=== PATIENT | female | born 1935 | race Caucasian/White ===

== ENCOUNTER 2021-09-25 09:17 | Emergency (ER) | payer MEDICARE, BC, SELFPAY ==
[2021-09-25 09:31] VITALS: BP 168/101; PULSE 69; RESP 20; TEMP 36.6; O2SAT 98; BMI 23.2
--- NOTE | 2021-09-25 09:46 | CRLHL7_ITS ---
For Patients: As a result of the Century Cures Act, medical imaging exams and procedure reports are released immediately into your electronic medical record. You may view this report before your referring provider. If you have questions, please contact your health care provider. INDICATION: Chest pain. TECHNIQUE: PA and lateral chest radiographs. COMPARISON: None available. FINDINGS: Mild linear and bandlike opacities scattered throughout the lungs bilaterally, with a peripheral and basilar predominance. No pneumothorax or pleural effusion. Borderline cardiomegaly. Left chest wall dual chamber cardiac pacer. Diffuse demineralization. IMPRESSION: Mild widespread peripheral/basilar predominant opacities may reflect atelectasis/scarring, pneumonitis, and/or atypical infection. Dictated by Dani Duran MD @ 09/25/2021 10:22:27 AM Dictated by: Dani Duran MD @ 09/25/2021 10:23:15 (Electronically Signed)
--- NOTE | 2021-09-25 09:47 | ED_ITS ---
HPI - General Adult General Time Seen by Provider: 09:47 Date Seen: 09/25/21 Chief complaint: Shortness of Breath/Dyspnea Stated complaint: Fell, hit back trouble breathing Time Seen by Provider: 09/25/21 09:21 Source: patient Mode of arrival: ambulatory Limitations: no limitations History of Present Illness HPI narrative: Patient is a 85 year white female who was stepping up on a curb and fell backward she landed on her back she has really no upper back pain she landed between her shoulder blades she does complain of some anterior chest tightness when she takes a deep breath she is on. She is on Coumadin, for AFib. She also has a pacemaker. She has had no anterior chest pain other than when she takes a deep breath. She has had no recent chest pain or illness. She simply lost her balance today she did not have any syncopal episode or loss of consciousness. Did not hit her head or any other body part. She has been ambulatory. She was trying to miss a water puddle when she was walking. She has not had an INR done for a couple of weeks. Past medical history significant for pacemaker, AFib, anticoagulation with Coumadin. Related Data Allergies Allergy/AdvReac Type Severity Reaction Status Date / Time No Known Drug Allergies Allergy Verified 09/25/21 10:59 [facility] Social History Smoking Status: Never smoker Second hand tobacco smoke exposure: No How often do you have a drink containing alcohol: monthly or less How many standard drinks containing alcohol do you have on a typical day: 1 or 2 How often do you have six or more drinks on one occasion: Never AUDIT-C Alcohol total score: 1 Non-prescribed substance use: denies use service: No Exam Narrative: Exam Narrative: Objective: In general the patient is no apparent distress, noncyanotic, with normal respiratory rate normal speech pattern Vital signs unremarkable other than slightly elevated blood pressure HEENT is unremarkable no facial asymmetry, no scleral icterus Neck is supple Chest and back show no tenderness to the interscapular area no tenderness to her back at all and no bruising. No anterior chest wall bruising. No real tenderness to palpation in the anterior chest. Heart is irregular regular with 2/6 systolic ejection murmur. Abdomen is benign soft Pelvis stable Upper lower extremities move without difficulty and no tenderness to palpation. Skin exam is unremarkable, warm and dry Const: Vital Signs, click to edit/add: Vital Signs - 24 hr 09/25/21 09:31 09/25/21 10:15 Temperature 98 F Pulse Rate [Pulse Oximeter] 69 70 Respiratory Rate 20 16 Blood Pressure [Ri t Upper Arm] 168/101 H 155/97 H Pulse Oximetry 98 98 Course Course Hospital Course: Patient is not had an INR done in about 3 weeks she did adjust her dose, will get an INR, heme 4, EKG, chest x-ray given the patient's complaint of some anterior chest discomfort with breathing secondary to her fall Vital Signs Vital signs: Initial Vital Signs Temperature 98 F 09/25/21 09:31 Temperature Source Temporal Artery Scan 09/25/21 09:31 Pulse Rate 69 09/25/21 09:31 Pulse Rhythm 09/25/21 09:31 Respiratory Rate 20 09/25/21 09:31 Blood Pressure 168/101 H 09/25/21 09:31 Blood Pressure Mean 123 09/25/21 09:31 Pulse Oximetry 98 09/25/21 09:31 Oxygen Delivery Method 09/25/21 09:31 Vital Signs Temperature 98 F 09/25/21 09:31 Pulse Rate 69 09/25/21 09:31 Respiratory Rate 20 09/25/21 09:31 Blood Pressure 168/101 H 09/25/21 09:31 Pulse Oximetry 98 09/25/21 09:31 Temperature 98 F 09/25/21 09:31 Pulse Rate 70 09/25/21 10:15 Respiratory Rate 16 09/25/21 10:15 Blood Pressure 155/97 H 09/25/21 10:15 Pulse Oximetry 98 09/25/21 10:15 Medical Decision Making [facility] Narrative Medical decision making narrative: Patient fell backwards hitting between her shoulder blades she has some anterior chest discomfort when she deep breathes. She has no palpable back findings, no palpable anterior chest findings. I suspect she has an intercostal or just chest wall strain from her fall. She has got good lung sounds bilaterally but will check an x-ray, and an EKG for completeness. She declines any pain medicine at this time. Addendum: The patient's laboratory studies look reassuring, her INR is 2.2, her chest x-ray shows chronic interstitial changes she does report a history of sarcoidosis in the past. She feels better. There is no abnormality by my read on her EKG it appears to be a paced rhythm some PACs a pulmonary disease pattern consistent with sarcoidosis no other acute ST T wave changes. I suspect she has chest wall pain from her fall, and would recommend Tylenol Advil as needed, light activity, update regular doctor within the next couple of days for reassessment as needed. Return to the ED as needed. Lab Data Labs: Lab Results 09/25/21 09/25/21 Range/Units 09:54 09:55 WBC 5.22 (4.50-11.00) K/uL RBC 4.14 (4.00-5.20) m/uL Hgb 13.4 (12.0-16.0) gm/dL Hct 39.7 (33.0-51.0) % MCV 96 (80-100) fL MCH 32 (26-34) pg MCHC 34 (32-36) gm/dL RDW Coeff of Juanita 13.2 (11.5-15.5) % Plt Count 177 (140-440) K/uL Neut % (Auto) 64.3 (42.0-72.0) % Lymph % (Auto) 16.3 L (20-44) % Bosque % (Auto) 10.7 (0.0-11.0) % Eos % (Auto) 7.1 H (0.0-7.0) % Baso % (Auto) 1.0 (0.0-3.0) % Neut # (Auto) 3.36 (1.7-7.0) K/uL Lymph # (Auto) 0.90 (0.90-2.90) K/uL Bosque # (Auto) 0.60 (0.00-0.90) K/UL Eos # (Auto) 0.40 (0.00-0.50) K/uL Baso # (Auto) 0.05 (0.00-0.30) K/uL Abs Immat Gran (auto) 0.03 (0.00-0.30) K/uL INR 2.29 H (0.91-1.10) Discharge Plan Discharge Clinical Impression: Chest wall pain, Fall Patient Disposition: Home w/ Parent or Adult Condition: Stable Additional Instructions: Tylenol or Advil as needed, light activity, ice to the areas of tenderness as needed. Observation, update primary care in the next couple of days, return to ED sooner problems concerns difficulty Activity Level: Light activity Discharge Diet: Regular Follow Up/Referrals: Filemon Reagan MD [Primary Care Provider] - Stand Alone Forms: [facility] Info Instructions
[2021-09-25 10:00] LABS: Basophils Absolute Auto 0.05 K/uL (0.00-0.30); Eosinophils Percent Auto 7.1 % (0.0-7.0); Hematocrit 39.7 % (33.0-51.0); Hemoglobin* 13.4 gm/dL (12.0-16.0); Immature Granulocytes Abs Auto 0.03 K/uL (0.00-0.30); Lymphocytes Percent Auto 16.3 % (20-44); Mean Corpuscular HGB Conc 34 gm/dL (32-36); Mean Corpuscular Hemoglobin 32 pg (26-34); Mean Corpuscular Volume 96 fL (80-100); Monocytes Percent Auto 10.7 % (0.0-11.0); Neutrophils Absolute Auto 3.36 K/uL (1.7-7.0); Neutrophils Percent Auto 64.3 % (42.0-72.0); Platelet Count* 177 K/uL (140-440); RDW Coefficient of Variation % 13.2 % (11.5-15.5); Red Blood Count 4.14 m/uL (4.00-5.20); White Blood Count* 5.22 K/uL (4.50-11.00)
[2021-09-25 10:15] VITALS: BP 155/97; PULSE 70; RESP 16; O2SAT 98
[2021-09-25 10:28] LABS: INR 2.29 (0.91-1.10); Prothrombin Time 25.6 Seconds
[2021-09-25] MEDS: ACETAMINOPHEN 500 MG TABLET 1000 MG PO (10:33)
[2021-09-25 10:59] LABS: Slide Review Reflex No
[2021-09-25 11:00] VITALS: BP 161/98; PULSE 70; RESP 16; O2SAT 97
== END 2021-09-25 11:30 ==
LOC: ED 11:12
PROVIDERS: Emergency Provider Family Medicine; PCP Internal Medicine
DX: R07.1 Chest pain on breathing (principal)
CPT/HCPCS: 36415; 71046; 85025; 85610; 93005; 99284; A9270

== ENCOUNTER 2021-10-25 10:27 | Outpatient (CLI) | payer MEDICARE, BC, SELFPAY ==
--- NOTE | 2021-10-25 11:00 | CRLHL7_ITS ---
For Patients: As a result of the Century Cures Act, medical imaging exams and procedure reports are released immediately into your electronic medical record. You may view this report before your referring provider. If you have questions, please contact your health care provider. Indication: PAIN, STRICTURE FEELING ACROSS CHEST Technique: Noncontrast CT thoracic spine Please note that all CT scans at this facility use dose modulation, iterative reconstruction, and/or weight-based dosing when appropriate to reduce radiation dose to as low as reasonably achievable. Comparison: Chest x-ray 05/30/2016, 09/25/2021. CT abdomen pelvis 12/1913. Findings: There is a compression deformity involving the inferior endplate of T6 with associated sclerosis. This is new since 2016. Rightward curvature of the lower thoracic spine noted. Severe degenerative disc disease on the left at L1-2. Cardiomegaly. Incidental retroesophageal course of the right subclavian artery. Areas of scarring within the visualized lung parenchyma. Impression: Compression deformity of T6. Please note that all CT scans at this facility use dose modulation, iterative reconstruction, and/or weight-based dosing when appropriate to reduce radiation dose to as low as reasonably achievable. Dictated by Alex Jean Baptiste MD @ 10/25/2021 12:29:03 PM (Electronically Signed)
== END 2021-10-25 10:28 | disposition home or self-care (01) ==
PROVIDERS: PCP Internal Medicine; Visit Provider Internal Medicine
DX: R07.89 Other chest pain (principal); M51.36 Other intervertebral disc degeneration, lumbar region
CPT/HCPCS: 72128

== ENCOUNTER 2022-03-03 12:19 | Emergency (ER) | payer MEDICARE, BC, SELFPAY ==
[2022-03-03 12:29] VITALS: BP 157/107; PULSE 77; TEMP 36.1; O2SAT 96; BMI 22.2
--- NOTE | 2022-03-03 12:38 | ED_ITS ---
History of Present Illness General Chief Complaint: Epistaxis/Nosebleed Stated Complaint: Niosebleed Time Seen by Provider: 03/03/22 12:28 History of Present Illness HPI Narrative: This 86-year-old female comes in with epistaxis. She is on Coumadin for atrial fibrillation. She states that her last INR a couple weeks ago was around 2.4. She states that a nosebleed began about 7:00 a.m. this morning and has persisted until just prior to arrival here. Upon arrival she is not actively bleeding but does have some bright red blood in the anterior inferior portion of her left nostril. There is no evidence of posterior bleed or blood in her oropharynx. Related Data Home Medications Medication Instructions Recorded Confirmed calcium carbonate 500 mg-vitamin 1 tab PO BID 10/18/21 10/18/21 D3 5 mcg (200 unit) tablet hydrochlorothiazide 25 mg tablet 25 mg PO QDAY 10/18/21 10/18/21 loratadine 10 mg tablet See Rx Instructions PO QDAY 10/18/21 10/18/21 sotalol 120 mg tablet 120 mg PO BID 10/18/21 10/18/21 zinc sulfate 66 mg tablet 66 mg PO QDAY 10/18/21 10/18/21 Previous Rx's Medication Instructions Recorded warfarin 5 mg tablet See Rx Instructions PO QMWF #240 11/20/21 tabs magnesium oxide 400 mg PO BID Atrial Fibrillation 12/12/21 #90 tabs warfarin 5 mg tablet 10 mg PO QTUTHSASU #180 tabs 02/20/22 Allergies Allergy/AdvReac Type Severity Reaction Status Date / Time No Known Drug Allergies Allergy Verified 10/18/21 13:00 Review of Systems Status of ROS: Reports: 10 or more systems reviewed and unremarkable except as noted in History and below Narrative: Constitutional: No fevers, no weight gain or loss. Eyes: No discharge. No vision changes. HENT: No congestion, no sore throat, no ear pain. Nose bleed as described above. Cardiovascular: No chest pain, no palpitations. Respiratory: No shortness of breath, no wheezes, no cough. Gastrointestinal: No abdominal pain, no vomiting, no diarrhea. Genitourinary: No dysuria, no hematuria. Musculoskeletal: Normal range of motion. Skin: No rashes, no pruritis. Neurological: No dizziness, weakness, sensory change, speech change. Endo/Heme/Allergies: No bruising or bleeding. No polydipsia. Pysch: no suicidality, no anxiety, no insomnia. All other systems reviewed and are negative. [facility] Medical History (Updated 03/03/22 @ 14:33 by Dennis Chan MD) Blunt injury of chest History of basal cell carcinoma (02/24/09) History of benign breast biopsy (02/24/09) History of sarcoidosis (02/24/09) Surgical History (Updated 10/11/21 @ 13:37 by Parul Fletcher) History of section (02/24/09) Status post cataract extraction (01/18/11) Social History Smoking Status: Never smoker Second hand tobacco smoke exposure: No How often do you have a drink containing alcohol: monthly or less How many standard drinks containing alcohol do you have on a typical day: 1 or 2 How often do you have six or more drinks on one occasion: Never AUDIT-C Alcohol total score: 1 Non-prescribed substance use: denies use service: No Exam Narrative: Exam Narrative: Constitutional: Well-developed, well-nourished, no acute distress. HEENT: Normocephalic, atraumatic. Right nostril appears normal. Left nostril has some bright red blood in the inferior anterior portion of the nostril. There is no active bleeding currently. There is no sign of posterior bleed. Neck: Normal range of motion. Nontender. Supple. Heart: Intact distal pulses. Lungs: No chest discomfort. No wheezes, rhonchi, or rales. Abdomen: Nontender. Back: Normal range of motion. Extremities: Normal range of motion. No injury. Skin: Intact. No rash. Warm. No erythema or pallor. Neurologic: No altered sensation. No weakness. Alert and oriented. Psychiatric: No suicidality. No anxiety or depression. No insomnia. Nursing notes and vitals signs are reviewed. Const: Vital Signs, click to edit/add: Vital Signs - 24 hr 03/03/22 12:29 03/03/22 13:02 03/03/22 14:00 Temperature 96.9 F L Pulse Rate [Left] 77 Blood Pressure [Le ft Upper Arm] 157/107 H 134/86 119/78 Pulse Oximetry 96 Oxygen Delivery Me thod Room Air Course Vital Signs Vital signs: Initial Vital Signs Temperature 96.9 F L 03/03/22 12:29 Temperature Source Temporal Artery Scan 03/03/22 12:29 Pulse Rate 77 03/03/22 12:29 Blood Pressure 157/107 H 03/03/22 12:29 Blood Pressure Mean 123 03/03/22 12:29 Pulse Oximetry 96 03/03/22 12:29 Oxygen Delivery Method 03/03/22 12:29 Vital Signs Temperature 96.9 F L 03/03/22 12:29 Pulse Rate 77 03/03/22 12:29 Blood Pressure 157/107 H 03/03/22 12:29 Pulse Oximetry 96 03/03/22 12:29 Oxygen Delivery Method 03/03/22 12:29 Temperature 96.9 F L 03/03/22 12:29 Pulse Rate 77 03/03/22 12:29 Blood Pressure 119/78 03/03/22 14:00 Pulse Oximetry 96 03/03/22 12:29 Oxygen Delivery Method 03/03/22 12:29 MDM - Epistaxis MDM Narrative Medical decision making narrative: This patient received Afrin in her left nostril. A nasal clamp is provided in case of rebleed. Her INR returns at 2.24. She has not had any recurrent bleeding during her stay here. She states that she is using Vaseline at night in her nostrils to prevent them from drying. Lab Data Labs: Lab Results 03/03/22 Range/Units 13:12 INR 2.24 H (0.91-1.10) Discharge Plan Discharge Clinical Impression: Epistaxis Patient Disposition: Home, Self-Care Condition: Improved Additional Instructions: Continue current plans. Use nasal clamp and Afrin if rebleeding occurs. Follow up with MD or return if worsening. Prescriptions: No Action calcium carbonate-vitamin D3 500 mg-5 mcg (200 unit) tablet 1 tab PO BID loratadine 10 mg tablet See Rx Instructions PO QDAY Rx Instructions: 10 mg (PRN) PO every day; sotalol 120 mg tablet 120 mg PO BID zinc sulfate 66 mg tablet 66 mg PO QDAY hydrochlorothiazide 25 mg tablet 25 mg PO QDAY warfarin 5 mg tablet See Rx Instructions PO QMWF Qty: 240 0RF Protocol: Dose Management Condition: Saturday Dose/Route: 10 % Instruction: 2 x 5 % tablets Condition: Saturday Dose/Route: 12.5 % Instruction: 2.5 x 5 % tablets Condition: Saturday Dose/Route: 10 % Instruction: 2 x 5 % tablets Condition: Saturday Dose/Route: 12.5 % Instruction: 2.5 x 5 % tablets Condition: Dose/Route: 10 % Instruction: 2 x 5 % tablets Condition: Saturday Dose/Route: 12.5 % Instruction: 2.5 x 5 % tablets Condition: Saturday Dose/Route: 10 % Instruction: 2 x 5 % tablets Protocol Text: Adjustment Start Date: Saturday02/20/22 INR Value: 2.4 INR Date: 02/20/22 Recheck Date: 03/20/22 Rx Instructions: 12.5 mg orally every saturday, saturday, and saturday; 10 mg the rest of the week. magnesium oxide 400 mg magnesium tablet 400 mg PO BID Qty: 90 2RF warfarin 5 mg tablet 10 mg PO QTUTHSASU Qty: 180 0RF Protocol: Dose Management Condition: Saturday Dose/Route: 10 % Instruction: 2 x 5 % tablets Condition: Saturday Dose/Route: 12.5 % Instruction: 2.5 x 5 % tablets Condition: Saturday Dose/Route: 10 % Instruction: 2 x 5 % tablets Condition: Saturday Dose/Route: 12.5 % Instruction: 2.5 x 5 % tablets Condition: Dose/Route: 10 % Instruction: 2 x 5 % tablets Condition: Saturday Dose/Route: 12.5 % Instruction: 2.5 x 5 % tablets Condition: Saturday Dose/Route: 10 % Instruction: 2 x 5 % tablets Protocol Text: Adjustment Start Date: Saturday02/20/22 INR Value: 2.4 INR Date: 02/20/22 Recheck Date: 03/20/22 Follow Up/Referrals: Filemon Reagan MD [Primary Care Provider] - Stand Alone Forms: [employer] Info Instructions
[2022-03-03] MEDS: OXYMETAZOLINE 0.05% NASAL SPRAY 1 SPRAY NOSTRIL-L (12:45)
[2022-03-03 13:02] VITALS: BP 134/86
[2022-03-03 13:33] LABS: INR 2.24 (0.91-1.10); Prothrombin Time 25.9 Seconds
[2022-03-03 14:00] VITALS: BP 119/78
== END 2022-03-03 14:38 | disposition home or self-care (01) ==
PROVIDERS: Emergency Provider Emergency Medicine Emergency Medical Services; PCP Internal Medicine
DX: R04.0 Epistaxis (principal)
CPT/HCPCS: 36415; 85610; 99283; 99284; A9270

== ENCOUNTER 2022-05-16 15:56 | Emergency (ER) | payer MEDICARE, BC, SELFPAY ==
[2022-05-16 15:59] VITALS: BP 194/115; PULSE 90; RESP 21; TEMP 36.4; O2SAT 94; BMI 21.6
--- NOTE | 2022-05-16 16:16 | CRLHL7_ITS ---
For Patients: As a result of the Century Cures Act, medical imaging exams and procedure reports are released immediately into your electronic medical record. You may view this report before your referring provider. If you have questions, please contact your health care provider. Indication: Dyspnea Comparison: Two-view chest September 25, 2021 Technique: PA and lateral views of the chest Findings: There is hyperinflation and extensive chronic interstitial change with basilar atelectasis and parenchymal scar. There is blunting of the costophrenic angles likely representing small pleural effusions. Stable cardiac silhouette with dual-chamber pacer. The bony thorax is grossly intact. Impression: Hyperinflation and chronic interstitial changes with increased interstitial markings likely representing pulmonary edema with small bibasilar pleural effusions with adjacent compressive atelectasis versus infiltrates. Dictated by Chinedu Carr MD @ 05/16/2022 4:47:37 PM (Electronically Signed)
--- NOTE | 2022-05-16 16:17 | ED.GENADULT ---
HPI - General Adult General Time Seen by Provider: 16:17 Date Seen: 05/16/22 Chief complaint: High Blood Pressure Stated complaint: High BP Time Seen by Provider: 05/16/22 16:06 Source: patient and family Mode of arrival: ambulatory Limitations: no limitations History of Present Illness HPI narrative: 86-year-old female who comes in today for high blood pressure. Shield her blood pressure was high yesterday and today. Call the clinic was told to should be seen in the emergency department. She takes sotalol and hydrochlorothiazide, review of chart shows history of atrial fibrillation and patient is anticoagulated, also history of heart failure. Patient has no chest pain, nausea, vomiting, abdominal pain, diarrhea, or lower extremity swelling with this. She does note some shortness of breath which is been going on for couple of days. Related Data Home Medications Medication Instructions Recorded Confirmed calcium carbonate 500 mg-vitamin 1 tab PO BID 10/18/21 10/18/21 D3 5 mcg (200 unit) tablet hydrochlorothiazide 25 mg tablet 25 mg PO QDAY 10/18/21 10/18/21 loratadine 10 mg tablet See Rx Instructions PO QDAY 10/18/21 10/18/21 sotalol 120 mg tablet 120 mg PO BID 10/18/21 10/18/21 zinc sulfate 66 mg tablet 66 mg PO QDAY 10/18/21 10/18/21 Previous Rx's Medication Instructions Recorded magnesium oxide 400 mg PO BID Atrial Fibrillation 12/12/21 #90 tabs warfarin 5 mg tablet See Rx Instructions PO QMWF #240 05/10/22 tabs Allergies Allergy/AdvReac Type Severity Reaction Status Date / Time No Known Drug Allergies Allergy Verified 05/16/22 16:04 Review of Systems Status of ROS: Reports: 10 or more systems reviewed and unremarkable except as noted in History and below [facility] Medical History (Updated 05/16/22 @ 17:32 by Johnie Laguna MD) Blunt injury of chest History of basal cell carcinoma (02/24/09) History of benign breast biopsy (02/24/09) History of sarcoidosis (02/24/09) Surgical History (Updated 10/11/21 @ 13:37 by Parul Fletcher) History of section (02/24/09) Status post cataract extraction (01/18/11) Social History Smoking Status: Never smoker Second hand tobacco smoke exposure: No How often do you have a drink containing alcohol: monthly or less How many standard drinks containing alcohol do you have on a typical day: 1 or 2 How often do you have six or more drinks on one occasion: Never AUDIT-C Alcohol total score: 1 Non-prescribed substance use: denies use service: No Exam Narrative: Exam Narrative: General: Well-developed and well-nourished, no acute distress Head: Atraumatic and normocephalic Eyes: Pupils are equal reactive, extraocular motions intact, conjunctiva clear ENT: External nose and ears are normal, posterior pharynx without erythema or exudate Neck: No midline cervical tenderness, full spontaneous range of motion the neck, trachea midline, no adenopathy Heart: Regular rate and rhythm no murmurs or thrills Lungs: Mild increased work of breathing with bilateral crackles worse on the left Abdomen: Soft, nontender, nondistended with active bowel sounds Musculoskeletal: No tenderness, deformity, or edema Neurologic: Awake, alert, and oriented x3, no gross focal neurologic deficits, cranial nerves intact as tested Psych: Mood and affect are appropriate Skin: No rashes Const: Vital Signs, click to edit/add: Vital Signs - 24 hr 05/16/22 15:59 05/16/22 17:38 Temperature 97.5 F L Pulse Rate [Pulse Oximeter] 90 Respiratory Rate 21 20 Blood Pressure [Ri ght Upper Arm] 194/115 H 159/100 H Pulse Oximetry 94 98 Oxygen Delivery Me thod Room Air Room Air Course Course Hospital Course: Patient seen and examined, prior records reviewed. Patient presents today with concerns about elevated blood pressure. We discussed that from emergency department standpoint elevated blood pressure in isolation is not necessarily a concern until the systolic blood pressures over 220-240, or there symptoms. On exam, patient has crackles in the lungs bilaterally and says she has been little more short of breath either for the last couple of days last couple weeks. She denies orthopnea, has a cough which is usual for her. History of sarcoid and crackles on exam could be from sarcoidosis but concern also for pulmonary edema. Labs and x-ray ordered. Reevaluation(s) Reevaluation #1: Chest x-ray independently interpreted by me demonstrates hyperinflation and chronic interstitial changes, some findings of pulmonary edema with small bilateral effusions. Initial troponin is negative, remaining labs are pending. Time: 16:50 Reevaluation #2: Labs independently interpreted by me demonstrate expected elevation in the INR related to Coumadin use, mild hyponatremia with normal potassium in reassuring creatinine. Troponin negative, BNP is elevated consistent with mild heart failure which may be related to hypertension. In the emergency department, blood pressure improved to current 155/80 without treatment. Lasix IV will be given in the emergency department and patient will be discharged with outpatient follow-up. Patient presented initially for elevated blood pressure. This has improved without treatment in the emergency department. She also has some findings of heart failure with elevated BNP, crackles on lung exam, neb pulmonary edema on chest x-ray. Lasix IV is given and patient will be started on Lasix at home along with potassium supplement. She has a follow-up appointment in 4 days with her primary care doctor. Time: 17:28 Vital Signs Vital signs: Initial Vital Signs Temperature 97.5 F L 05/16/22 15:59 Temperature Source Temporal Artery Scan 05/16/22 15:59 Pulse Rate 90 05/16/22 15:59 Pulse Rhythm 05/16/22 15:59 Pulse Strength 3+ Normal 05/16/22 15:59 Respiratory Rate 21 05/16/22 15:59 Blood Pressure 194/115 H 05/16/22 15:59 Blood Pressure Mean 141 05/16/22 15:59 Blood Pressure Position Sitting 05/16/22 15:59 Pulse Oximetry 94 05/16/22 15:59 Oxygen Delivery Method 05/16/22 15:59 Vital Signs Temperature 97.5 F L 05/16/22 15:59 Pulse Rate 90 05/16/22 15:59 Respiratory Rate 21 05/16/22 15:59 Blood Pressure 194/115 H 05/16/22 15:59 Pulse Oximetry 94 05/16/22 15:59 Oxygen Delivery Method 05/16/22 15:59 Temperature 97.5 F L 05/16/22 15:59 Pulse Rate 90 05/16/22 15:59 Respiratory Rate 20 05/16/22 17:38 Blood Pressure 159/100 H 05/16/22 17:38 Pulse Oximetry 98 05/16/22 17:38 Oxygen Delivery Method 05/16/22 17:38 Medical Decision Making Medical Records Medical records reviewed: Yes I reviewed the patient's medical records Lab Data Lab results reviewed: Yes I reviewed the patient's lab results Labs: Lab Results 05/16/22 05/16/22 05/16/22 Range/Units 16:16 16:18 16:18 INR 3.02 H (0.91-1.10) Sodium 128 L (135-149) mmol/L Potassium 3.9 (3.6-5.1) mmol/L Chloride 94 L (96-114) mmol/L Carbon Dioxide 27 (20-32) mmol/L BUN 15 (7-30) mg/dL Creatinine 0.8 (0.5-1.5) mg/dL Estimated Creat Clear 46.48 Estimated GFR 73 ml/min Glucose 120 H (60-115) mg/dL Calcium 8.8 (8.4-10.6) mg/dL NT-Pro-B Natriuret Pep 2190 pg/mL POC Troponin I 0.00 L (0.01-0.04) ng/ml 05/16/22 Range/Units 16:18 INR (0.91-1.10) Sodium (135-149) mmol/L Potassium (3.6-5.1) mmol/L Chloride (96-114) mmol/L Carbon Dioxide (20-32) mmol/L BUN (7-30) mg/dL Creatinine (0.5-1.5) mg/dL Estimated Creat Clear Estimated GFR ml/min Glucose (60-115) mg/dL Calcium (8.4-10.6) mg/dL NT-Pro-B Natriuret Pep Cancelled pg/mL POC Troponin I (0.01-0.04) ng/ml ECG Data Attestation: I personally reviewed and interpreted this ECG as follows: Prior ECG tracings: not available for review Interpretation: Independently interpreted by me performed at 4:33 p.m. demonstrates atrial paced rhythm rate 73, right axis deviation, no acute ST elevations or depressions, QTC 438. No prior for comparison. Discharge Plan Discharge Clinical Impression: Congestive heart failure with left ventricular systolic dysfunction, Atrial fibrillation, Anticoagulation goal of INR 2 to 3 Patient Disposition: Home w/ Parent or Adult Condition: Stable Instructions: Heart Failure (DC), A-fib (Atrial Fibrillation) (DC), Hypertension (ED) Activity Level: No Restrictions Discharge Diet: Heart Healthy (2 gm sodium, low fat) Prescriptions: No Action calcium carbonate-vitamin D3 500 mg-5 mcg (200 unit) tablet 1 tab PO BID loratadine 10 mg tablet See Rx Instructions PO QDAY Rx Instructions: 10 mg (PRN) PO every day; sotalol 120 mg tablet 120 mg PO BID zinc sulfate 66 mg tablet 66 mg PO QDAY hydrochlorothiazide 25 mg tablet 25 mg PO QDAY magnesium oxide 400 mg magnesium tablet 400 mg PO BID Qty: 90 2RF warfarin 5 mg tablet See Rx Instructions PO QMWF Qty: 240 0RF Protocol: Dose Management Condition: Saturday Dose/Route: 10 mg Instruction: 2 x 5 mg tablets Condition: Saturday Dose/Route: 12.5 mg Instruction: 2.5 x 5 mg tablets Condition: Saturday Dose/Route: 10 mg Instruction: 2 x 5 mg tablets Condition: Saturday Dose/Route: 10 mg Instruction: 2 x 5 mg tablets Condition: Dose/Route: 10 mg Instruction: 2 x 5 mg tablets Condition: Saturday Dose/Route: 12.5 mg Instruction: 2.5 x 5 mg tablets Condition: Saturday Dose/Route: 10 mg Instruction: 2 x 5 mg tablets Protocol Text: Adjustment Start Date: 05/10/22 INR Value: 3.0 INR Date: 05/10/22 Recheck Date: 05/24/22 Rx Instructions: 12.5 mg orally every saturday and saturday; 10 mg the rest of the week. Follow Up/Referrals: Filemon Reagan MD [Primary Care Provider] - Stand Alone Forms: [facility] Info Instructions
[2022-05-16 16:50] LABS: Chloride* 94 mmol/L (96-114)
[2022-05-16 16:51] LABS: Potassium* 3.9 mmol/L (3.6-5.1); Sodium* 128 mmol/L (135-149)
[2022-05-16 16:52] LABS: INR 3.02 (0.91-1.10); Prothrombin Time 32.7 Seconds
[2022-05-16 16:54] LABS: Blood Urea Nitrogen* 15 mg/dL (7-30); Calcium* 8.8 mg/dL (8.4-10.6); Carbon Dioxide* 27 mmol/L (20-32); Creatinine* 0.8 mg/dL (0.5-1.5); Est. Creatinine Clearance* 46.48; Estimated Glomerular Filt Rate 73 ml/min; Glucose* 120 mg/dL (60-115)
[2022-05-16 17:17] LABS: NT Pro B Type NatriureticPept* 2190 pg/mL
[2022-05-16] MEDS: FUROSEMIDE 10 MG/ML inj 40 MG IVP (17:37)
[2022-05-16 17:38] VITALS: BP 159/100; RESP 20; O2SAT 98
== END 2022-05-16 18:01 | disposition home or self-care (01) ==
PROVIDERS: Emergency Provider Family Medicine; PCP Internal Medicine
DX: I50.9 Heart failure, unspecified (principal); I48.91 Unspecified atrial fibrillation; Z79.01 Long term (current) use of anticoagulants
CPT/HCPCS: 36415; 71046; 80048; 83880; 84484; 85610; 93005; 96374; 99284; J1940

== ENCOUNTER 2022-05-21 09:20 | Outpatient (CLI) | payer MEDICARE, BC, SELFPAY ==
[2022-05-21 11:50] LABS: Chloride* 89 mmol/L (96-114); Potassium* 3.3 mmol/L (3.6-5.1); Sodium* 126 mmol/L (135-149)
[2022-05-21 11:53] LABS: Blood Urea Nitrogen* 22 mg/dL (7-30); Carbon Dioxide* 31 mmol/L (20-32); Creatinine* 0.9 mg/dL (0.5-1.5); Estimated Glomerular Filt Rate 63 ml/min; Glucose* 81 mg/dL (60-115)
[2022-05-21 11:54] LABS: Calcium* 8.7 mg/dL (8.4-10.6)
== END 2022-05-21 09:21 | disposition home or self-care (01) ==
PROVIDERS: PCP Internal Medicine; Visit Provider Internal Medicine
DX: I48.91 Unspecified atrial fibrillation (principal)
CPT/HCPCS: 80048

== ENCOUNTER 2022-06-05 07:41 | Outpatient (CLI) | payer MEDICARE, BC, SELFPAY | END 2022-06-05 07:42 | disposition home or self-care (01) | LOC: NFLDREF 06-07 06:50 | PROVIDERS: PCP Internal Medicine; Referring Provider Internal Medicine; Visit Provider Internal Medicine | DX: E87.1 Hypo-osmolality and hyponatremia (principal) | CPT/HCPCS: 80048 ==

== ENCOUNTER 2022-06-11 14:25 | Outpatient (CLI) | payer MEDICARE, BC, SELFPAY | END 2022-06-11 14:26 | disposition home or self-care (01) | LOC: RAD 14:26 | PROVIDERS: PCP Internal Medicine; Visit Provider Internal Medicine | DX: Z51.81 Encounter for therapeutic drug level monitoring (principal); Z79.01 Long term (current) use of anticoagulants; T45.515A Adverse effect of anticoagulants, initial encounter; I51.7 Cardiomegaly; I34.0 Nonrheumatic mitral (valve) insufficiency; I37.1 Nonrheumatic pulmonary valve insufficiency | CPT/HCPCS: 93306 ==

== ENCOUNTER 2022-06-13 14:17 | Outpatient (CLI) | payer MEDICARE, BC, SELFPAY | END 2022-06-13 14:18 | disposition home or self-care (01) | LOC: NFLDREF 14:18 | PROVIDERS: PCP Internal Medicine; Visit Provider Internal Medicine | DX: I48.91 Unspecified atrial fibrillation (principal) | CPT/HCPCS: 85610 ==

== ENCOUNTER 2022-07-27 08:12 | Outpatient (CLI) | payer MEDICARE, BC, SELFPAY | END 2022-07-27 08:13 | disposition home or self-care (01) | LOC: NFLDREF 07-30 11:58 | PROVIDERS: PCP Internal Medicine; Referring Provider Internal Medicine; Visit Provider Internal Medicine | DX: I10 Essential (primary) hypertension (principal) | CPT/HCPCS: 80048 ==

== ENCOUNTER 2023-01-14 13:00 | Outpatient (CLI) | payer MEDICARE, BC, SELFPAY | END 2023-01-14 13:01 | disposition home or self-care (01) | LOC: NFLDREF 01-17 14:47 | PROVIDERS: PCP Internal Medicine; Referring Provider Internal Medicine; Visit Provider Internal Medicine | DX: I50.9 Heart failure, unspecified (principal) | CPT/HCPCS: 80048 ==

== ENCOUNTER 2023-04-05 03:29 | Emergency (ER) | payer MEDICARE, BC, SELFPAY ==
[2023-04-05] VITALS (15 sets, daily range): BP systolic 155–185; BP diastolic 96–113; PULSE 70–84; RESP 24; TEMP 36.6; O2SAT 88–97; BMI 21.1
--- NOTE | 2023-04-05 03:52 | CRLHL7_ITS ---
For Patients: As a result of the Cures Act, medical imaging exams and procedure reports are released immediately into your electronic medical record. You may view this report before your referring provider. If you have questions, please contact your health care provider. INDICATION: Cough and dyspnea. COMPARISON: May 16, 2022 TECHNIQUE: Two views of the chest were acquired FINDINGS: TUBES AND LINES: Left-sided pacer with leads ending in the right atrium and the right ventricle. HEART AND MEDIASTINUM: Enlarged heart unchanged in appearance.. LUNGS AND PLEURAL SPACES: Abnormal lungs. There is diffuse interstitial abnormality with findings suggesting scarring and bronchiectasis primarily in the right mid lung in the right upper lobe. Similar overall appearance to the prior study without definite acute focal finding.No pleural effusion or pneumothorax. OSSEOUS STRUCTURES: Demineralization and degenerative change. Wedge deformity of an upper thoracic vertebral body unchanged IMPRESSION: 1. Enlarged heart unchanged appearance. Pacer normally located. 2. Chronic interstitial abnormality with areas of scarring and probable bronchiectasis. Similar appearance to May 16, 2022 without definite plain film finding of acute focal abnormalities Dictated by Gino Santillan MD @ 04/05/2023 4:56:47 AM (Electronically Signed)
--- OUTSIDE RECORDS SUMMARY | 2023-04-05 04:02 | XMS_ITS | Clinical Summary ---
Author Name Unknown Organization [facility] Address [place], [place] [address] Care Team Providers Care Garage Helper Name Role Phone Filemon Reagan MD Primary Care Provider Allergies No known active allergies Medications Medication Sig Dispensed Refills Start Date End Date Status ZINC ACETATE ORAL Take 66 mg by mouth every Saturday, Saturday and Saturday. 0 Active CALCIUM CARBONATE/VITAMIN D3 (CALCIUM + D ORAL) Take 600 mg by mouth 2 times daily. 0 Active MULTIVITAMIN (MULTIPLE VITAMIN ORAL) Take 1 tablet by mouth once daily. 0 Active acetaminophen (TYLENOL EXTRA STRGTH) 500 mg tabletIndications: Atrial fibrillation, persistent (HC) Take 2 tablets by mouth every 6 hours if needed (For mild pain.). Max acetaminophen dose: 4000mg in 24 hrs. 0 01/02/2017 Active magnesium oxide (MAG-OX 400) 400 mg tabletIndications: Hypomagnesemia Take 1 tablet by mouth 2 times daily. 60 tablet 2 01/29/2017 Active warfarin (COUMADIN) 5 mg tablet Take 12.5 mg on Saturday/Saturday/ iday and 10 mg all other days 0 Active loratadine (CLARITIN) 10 mg tablet Take 10 mg by mouth once daily if needed for Allergy Symptoms. 0 Active sotaloL (BETAPACE) 80 mg tabletIndications: Dizziness,Paroxysm al atrial fibrillation (HC) Take 1 Tablet (80 mg) by mouth every 12 hours. 180 Tablet 3 03/06/2022 Active furosemide (LASIX) 20 mg tablet Take 1 Tablet (20 mg) by mouth every morning. 0 07/20/2022 Active losartan (COZAAR) 50 mg tablet Take 1 Tablet (50 mg) by mouth once daily. 0 07/20/2022 Active Active Problems Patient Care Coordination No te Formatting of this note migh t be different from the original. HF/Structural Research Eligibility Review Date: 02/27/19 The patient does not qualify for any currently enrolling studies at the time of this review. Problem Noted Date Diagnosed Date Persistent atrial fibrillation 10/30/2016 Sinus node dysfunction 10/30/2016 Therapeutic drug monitoring 10/30/2016 Mitral valve insufficiency 10/22/2016 Atrial fibrillation, persistent 09/04/2016 Sarcoidosis 09/04/2016 Cardiomyopathy 09/04/2016 Bilateral leg edema 09/04/2016 Asthma 09/04/2016 Atrial fibrillation Mitral regurgitation Sinus node dysfunction Social History Tobacco Use Types Packs/Day Years Used Date Smoking Tobacco: Former Cigarettes 10 0 09/07/1958 - 09/04/1968 Smokeless Tobacco: Never Tobacco Cessation:Counseling Given: No Alcohol Use Standard Drinks/Week Comments Yes 7 (1 standard drink = 0.6 oz pure alcohol) 1 glass wine daily, sometimes cocktail PHQ-2 Answer Date Recorded PHQ-2 Score 0 12/06/2018 Social Connections Answer Date Recorded Frequency of Communication with Friends and Fami ly Not on file 03/25/2021 Financial Resource Strain Answer Date R ecorded Difficulty of Paying Living Expenses Not on file 03/25/2021 Difficulty of Paying Living Expenses Not on file 03/25/2021 Sex and Gender Information Value Date Recorded Sex Assigned at Not on file Gender Identity Not on file Sexual Orientation Not on file Obstetrics History Last Filed Vital Signs Vital Sign Reading Time Taken Comments Blood Pressure 117/62 03/06/2022 12:42 PM BOILER CONTROL TECHNICIAN Pulse 78 03/06/2022 12:42 PM BOILER CONTROL TECHNICIAN Temperature 36.5 ??C (97.7 ??F) 02/15/2020 10:[address] Respiratory Rate 16 12/07/2018 7:58 AM CDT Oxygen Saturation 97% 03/06/2022 12:42 PM BOILER CONTROL TECHNICIAN Inhaled Oxygen Concentration - - Weight 73.5 kg (162 lb) 03/06/2022 12:42 PM BOILER CONTROL TECHNICIAN Height 177.8 cm (5' 10) 03/06/2022 12:42 PM BOILER CONTROL TECHNICIAN Body Mass Index 23.24 03/06/2022 12:42 PM BOILER CONTROL TECHNICIAN Plan of Treatment Upcoming Encounters Date Type Department Care Team (Late st Contact Info) Description 04/12/2023 11:00 AM BOILER CONTROL TECHNICIAN Office Visit [facility] [address] [place] [address] Ric Zepeda MD [address] [place] [address] [phone] Health Maintenance Due Date Last Done Comments Pneumococcal series for age 65+ (1 of 2 - PCV) 11/11/1941 Tdap 1948 Tetanus booster 1957 Zoster (shingles) series for age 50+ (1 of 2) 11/11/1987 DEXA/DXA scan for age 65+ 2002 Medicare Wellness for age 65+ 2002 Depression screening for age 12+ 11/27/2019 11/27/19 COVID-19 vaccine series (2 - 2022- season) 2022 03/01/2022 Influenza for age 65+ 11/23/2022 BMI (ht and wt on same day) for age 18+ 03/06/2023 03/06/2022, 02/13/2021, 02/15/2020, Additional history exists Advance Directives Documents on File Type Date Recorded 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 Healthcare Directive 12/27/2016 3:20 PM Latest Code Status on File Code Status Date Activated Date Inactivated Comments Full Code 12/06/2018 7:35 AM 12/07/2018 12:36 PM Code Status History Code Status Date Activated Date Inactivated Comments Full Code 01/01/2017 6:06 AM 01/02/2017 12:33 PM Full Code 12/21/2016 7:30 AM 12/21/2016 11:20 AM Full Code 12/03/2016 10:50 AM 12/03/2016 9:36 PM Full Code 10/29/2016 1:18 PM 11/01/2016 2:37 PM Care Teams Garage Helper Relationship Specialty Start Date End Date Filemon Reagan MD [address] [place] [id number] PCP - General Internal Medicine 05/02/17
[2023-04-05 04:09] LABS: Basophils Percent Auto 1.2 % (0.0-3.0); Eosinophils Percent Auto 7.9 % (0.0-7.0); Hematocrit 43.6 % (33.0-51.0); Hemoglobin* 14.6 gm/dL (12.0-16.0); Lymphocytes Percent Auto 12.3 % (20-44); Mean Corpuscular HGB Conc 34 gm/dL (32-36); Mean Corpuscular Hemoglobin 33 pg (26-34); Mean Corpuscular Volume 100 fL (80-100); Monocytes Percent Auto 14.9 % (0.0-11.0); Neutrophils Percent Auto 63.7 % (42.0-72.0); Platelet Count* 161 K/uL (140-440); RDW Coefficient of Variation % 13.7 % (11.5-15.5); Red Blood Count 4.38 m/uL (4.00-5.20)
[2023-04-05 04:12] LABS: Slide Review Reflex No
[2023-04-05] MEDS: IPRAT-ALBUT 0.5-2.5 MG/3 ML NEB 1 NEB IH (04:16)
[2023-04-05] MEDS: FUROSEMIDE 10 MG/ML inj 40 MG IVP (04:16)
[2023-04-05] MEDS: METHYLPREDNISOLONE SOD SUCC 62.5 MG/ML (125) 80 MG IVP (04:16)
[2023-04-05 04:19] LABS: Chloride* 96 mmol/L (96-114); Potassium* 4.2 mmol/L (3.6-5.1); Sodium* 131 mmol/L (135-149)
[2023-04-05 04:22] LABS: Anion Gap 7 mEq/L (7-15); Carbon Dioxide* 28 mmol/L (20-32); Creatinine* 0.6 mg/dL (0.5-1.5); Est. Creatinine Clearance* 43.29; Estimated Glomerular Filt Rate 88 ml/min
[2023-04-05 04:23] LABS: Blood Urea Nitrogen* 16 mg/dL (7-30); Calcium* 8.8 mg/dL (8.4-10.6); Glucose* 126 mg/dL (60-115)
--- NOTE | 2023-04-05 04:34 | ED.NURSE ---
patient up to the bathroom. steady on her feet. Feeling like her breathing is improved after the duoneb.
[2023-04-05 04:39] LABS: NT Pro B Type NatriureticPept* 1340 pg/mL
[2023-04-05 04:54] LABS: PCR FLU A Negative PCR FLU A (Negative); PCR FLU B Negative PCR FLU B (Negative); PCR RSV Negative PCR RSV (Negative); SARS PCR* Negative SARS-CoV-2 (Negative)
--- NOTE | 2023-04-05 05:49 | ED.NURSE ---
patient reports decrease in the swelling in her legs and improvement in her breathing
--- NOTE | 2023-04-05 06:06 | ED.GENADULT ---
HPI - General Adult General Date Seen: 04/05/23 Chief complaint: Shortness of Breath/Dyspnea Stated complaint: shortness of breath Time Seen by Provider: 04/05/23 03:45 Source: patient and family Mode of arrival: ambulatory Limitations: no limitations History of Present Illness HPI narrative: 87-year-old female who comes in during the night with her with concerns of worsening shortness of breath. She was seen in clinic yesterday and had a negative COVID swab. Her wheezing and shortness of breath have gotten worse. Her ankles have started to swell. She does have a history of congestive heart failure. No fevers or chills. She is uncertain if her weight has changed. Related Data Home Medications Medication Instructions Recorded Confirmed calcium carbonate 500 mg-vitamin 1 tab PO BID 10/18/21 01/01/23 D3 5 mcg (200 unit) tablet loratadine 10 mg tablet See Rx Instructions PO QDAY 10/18/21 01/01/23 zinc sulfate 66 mg tablet 66 mg PO QDAY 10/18/21 01/01/23 sotalol 120 mg tablet 80 mg PO BID 07/20/22 01/01/23 Previous Rx's Medication Instructions Recorded potassium chloride 20 mEq oral 20 meq PO DAILY #7 ea 05/16/22 packet losartan 50 mg tablet 50 mg PO QDAY #90 tabs 07/20/22 furosemide 20 mg tablet (Lasix) 20 mg PO QAM CHF #30 tabs 01/15/23 magnesium oxide 400 mg PO BID Atrial Fibrillation 02/27/23 #90 tabs warfarin 5 mg tablet 10 mg PO QDAY #180 tabs 03/01/23 Allergies Allergy/AdvReac Type Severity Reaction Status Date / Time No Known Drug Allergies Allergy Verified 01/01/23 09:56 Review of Systems Narrative: Review of systems is positive for atrial fibrillation and hypertension. Does not have home oxygen. She has been eating and drinking okay. Review of systems is otherwise unremarkable. [facility] Medical History Atrial fibrillation ?I48.91 - Unspecified atrial fibrillation (ICD-10) Mitral regurgitation ?I34.0 - Nonrheumatic mitral (valve) insufficiency (ICD-10) COVID-19 ?U07.1 - COVID-19 (ICD-10) Congestive heart failure ?I50.9 - Heart failure, unspecified (ICD-10) Blunt injury of chest ?S29.8XXA - Other specified injuries of thorax, initial encounter (ICD-10) History of sarcoidosis (02/24/09) ?Z86.2 - Personal history of diseases of the blood and blood-forming organs and certain disorders involving the immune mechanism (ICD-10) History of benign breast biopsy (02/24/09) ?Z98.890 - Other specified postprocedural states (ICD-10) History of basal cell carcinoma (02/24/09) ?Z85.828 - Personal history of other malignant neoplasm of skin (ICD-10) Surgical History Status post cataract extraction (01/18/11) ?Z98.49 - Cataract extraction status, unspecified eye (ICD-10) History of section (02/24/09) ?Z98.891 - History of uterine scar from previous surgery (ICD-10) Social History What is your current living situation?: I presently have a place to live Problems where you live: no known problems In the past 12 months, utilities in danger of being shut off: no In past 12 months, lack of transportation kept you from medical appts, meetings, work, or getting things needed for daily living: no In the past 12 mos, have been you worried that your food would run out before you had money to buy more?: never true In the past 12 mos, the food you bought just didn't last and you didn't have money to buy more?: never true Smoking Status: Former smoker Second hand tobacco smoke exposure: No How often do you have a drink containing alcohol: monthly or less How many standard drinks containing alcohol do you have on a typical day: 1 or 2 How often do you have six or more drinks on one occasion: Never AUDIT-C Alcohol total score: 1 Non-prescribed substance use: denies use How often does anyone, including family, friends and others, physically hurt you: never How often does anyone, including family, friends and others, insult or talk down to you: never How often does anyone, including family, friends and others, threaten you with harm: never How often does anyone, including family, friends and others, scream or curse at you: never Little interest or pleasure in doing things: not at all Feeling down, depressed, or hopeless: not at all service: No Exam Narrative: Exam Narrative: Vitals noted. She has initially hypoxic at 88% on room air. She rises to 95% on 1 L. HEENT: Conjunctiva clear. Tympanic membranes are pearly white bilaterally. Posterior pharynx is clear without erythema or exudate. Neck is supple without adenopathy, thyromegaly, carotid bruit. Lungs: She has expiratory wheezes and bibasilar rales. Heart: Irregularly irregular rate and rhythm with a systolic murmur. Abdomen: Soft and nontender. No guarding, rigidity, rebound. Bowel sounds are normal. No palpable masses. Extremities: 2+ pitting edema. Good distal pulses. Skin: No abnormalities noted of the exposed skin. Neurologic: Awake, alert, fully oriented. Neurologic exam is nonfocal. Const: Vital Signs, click to edit/add: Vital Signs - 24 hr 04/05/23 03:38 04/05/23 03:52 04/05/23 04:00 Temperature 97.9 F Pulse Rate 75 70 Pulse Rate [Pulse Oximeter] 84 Respiratory Rate 24 Blood Pressure Blood Pressure [Ri ght Upper Arm] 185/113 H Pulse Oximetry 88 95 95 Oxygen Delivery Me thod Room Air Oxygen Flow Rate 04/05/23 04:15 04/05/23 04:30 04/05/23 04:36 Temperature Pulse Rate 79 71 Pulse Rate [Pulse Oximeter] Respiratory Rate Blood Pressure Blood Pressure [Ri ght Upper Arm] Pulse Oximetry 97 94 96 Oxygen Delivery Me thod Nasal Cannula Room Air Oxygen Flow Rate 2 04/05/23 04:45 04/05/23 05:00 04/05/23 05:15 Temperature Pulse Rate 73 80 71 Pulse Rate [Pulse Oximeter] Respiratory Rate Blood Pressure Blood Pressure [Ri ght Upper Arm] Pulse Oximetry 91 94 90 Oxygen Delivery Me thod Room Air Room Air Oxygen Flow Rate 04/05/23 05:30 04/05/23 05:45 04/05/23 05:57 Temperature Pulse Rate 75 70 82 Pulse Rate [Pulse Oximeter] Respiratory Rate Blood Pressure 155/96 H Blood Pressure [Ri ght Upper Arm] Pulse Oximetry 95 90 93 Oxygen Delivery Me thod Room Air Room Air Room Air Oxygen Flow Rate 04/05/23 05:58 04/05/23 06:00 04/05/23 06:14 Temperature Pulse Rate 81 73 Pulse Rate [Pulse Oximeter] Respiratory Rate Blood Pressure Blood Pressure [Ri ght Upper Arm] Pulse Oximetry 95 96 94 Oxygen Delivery Me thod Oxygen Flow Rate 04/05/23 06:14 Temperature Pulse Rate Pulse Rate [Pulse Oximeter] Respiratory Rate Blood Pressure Blood Pressure [Ri ght Upper Arm] Pulse Oximetry Oxygen Delivery Me thod Nasal Cannula Oxygen Flow Rate 1 Course Course ED Course: Patient was seen and examined. She initially was hypoxic and required 1 L of nasal cannula oxygen. Labs, triple swab, chest x-ray are ordered. Reevaluation(s) Reevaluation #1: CBC and BMP are unremarkable. Triple swab is negative. BNAP is 1300. Chest x-ray shows cardiomegaly and some atelectasis. No clear pulmonary edema. She is given a Solu-Medrol 80 mg, DuoNeb and furosemide 40 mg IV. She had excellent diuresis. Her wheezing improved significantly with the neb and steroid. She was able to be weaned from oxygen and was comfortable returning home. Vital Signs Vital signs: Initial Vital Signs Temperature 97.9 F 04/05/23 03:38 Temperature Source Temporal Artery Scan 04/05/23 03:38 Pulse Rate 84 04/05/23 03:38 Respiratory Rate 24 04/05/23 03:38 Blood Pressure 185/113 H 04/05/23 03:38 Blood Pressure Mean 137 H 04/05/23 03:38 Pulse Oximetry 88 04/05/23 03:38 Oxygen Delivery Method Room Air 04/05/23 03:38 Vital Signs Temperature 97.9 F 04/05/23 03:38 Pulse Rate 84 04/05/23 03:38 Respiratory Rate 24 04/05/23 03:38 Blood Pressure 185/113 H 04/05/23 03:38 Pulse Oximetry 88 04/05/23 03:38 Oxygen Delivery Method Room Air 04/05/23 03:38 Temperature 97.9 F 04/05/23 03:38 Pulse Rate 73 04/05/23 06:00 Respiratory Rate 24 04/05/23 03:38 Blood Pressure 155/96 H 04/05/23 05:57 Pulse Oximetry 94 04/05/23 06:14 Oxygen Delivery Method Nasal Cannula 04/05/23 06:14 Oxygen Flow Rate 1 04/05/23 06:14 Medications Administered Medications: Discontinued Medications Generic Name Dose Route Start Last Admin Trade Name Wisam PRN Reason Stop Dose Admin Albuterol/Ipratropium 1 neb 04/05/23 03:53 04/05/23 04:16 Iprat-Albut 0.5-2.5 Mg/3 Ml Neb IH 04/05/23 03:54 1 neb ONCE ONE Administration Furosemide 40 mg 04/05/23 03:54 04/05/23 04:16 Furosemide 10 Mg/Ml Inj IVP 04/05/23 03:55 40 mg ONCE ONE Administration Methylprednisolone Sodium Succinate 80 mg 04/05/23 03:53 04/05/23 04:16 Methylprednisolone Sod Succ 62.5 Mg/Ml (125) IVP 04/05/23 03:54 80 mg ONCE ONE Administration Medical Decision Making Lab Data Labs: Lab Results 04/05/23 04/05/23 Range/Units 03:45 04:10 WBC 4.30 L (4.50-11.00) K/uL RBC 4.38 (4.00-5.20) m/uL Hgb 14.6 (12.0-16.0) gm/dL Hct 43.6 (33.0-51.0) % MCV 100 (80-100) fL MCH 33 (26-34) pg MCHC 34 (32-36) gm/dL RDW Coeff of Juanita 13.7 (11.5-15.5) % Plt Count 161 (140-440) K/uL Neut % (Auto) 63.7 (42.0-72.0) % Lymph % (Auto) 12.3 L (20-44) % [place] % (Auto) 14.9 H (0.0-11.0) % Eos % (Auto) 7.9 H (0.0-7.0) % Baso % (Auto) 1.2 (0.0-3.0) % Neut # (Auto) 2.70 (1.7-7.0) K/uL Lymph # (Auto) 0.50 L (0.90-2.90) K/uL [place] # (Auto) 0.60 (0.00-0.90) K/UL Eos # (Auto) 0.30 (0.00-0.50) K/uL Baso # (Auto) 0.10 (0.00-0.30) K/uL Abs Immat Gran (auto) 0.00 (0.00-0.30) K/uL Imm/Tot Granulo (auto) 0.0 % Sodium 131 L (135-149) mmol/L Potassium 4.2 (3.6-5.1) mmol/L Chloride 96 (96-114) mmol/L Carbon Dioxide 28 (20-32) mmol/L Anion Gap 7 (7-15) mEq/L BUN 16 (7-30) mg/dL Creatinine 0.6 (0.5-1.5) mg/dL Estimated Creat Clear 43.29 Estimated GFR 88 ml/min Glucose 126 H (60-115) mg/dL Calcium 8.8 (8.4-10.6) mg/dL NT-Pro-B Natriuret Pep 1340 pg/mL SARS-CoV-2 (PCR) Negative SARS-CoV-2 (Negative) Influenza Type A (PCR) Negative PCR FLU A (Negative) Influenza Type B (PCR) Negative PCR FLU B (Negative) RSV (PCR) Negative PCR RSV (Negative) Discharge Plan Discharge Clinical Impression: CHF (congestive heart failure) Patient Disposition: Home, Self-Care Condition: Improved Additional Instructions: Increase Lasix to 40 mg daily. Go ahead and take your full dose today. Follow-up with Dr. Reagan in five days. Continue all of your other medications. Return to the emergency department if your having worsening respiratory distress. Prescriptions: No Action calcium carbonate-vitamin D3 500 mg-5 mcg (200 unit) tablet 1 tab PO BID loratadine 10 mg tablet See Rx Instructions PO QDAY Rx Instructions: 10 mg (PRN) PO every day; zinc sulfate 66 mg tablet 66 mg PO QDAY losartan 50 mg tablet 50 mg PO QDAY Qty: 90 3RF sotalol 120 mg tablet 80 mg PO BID potassium chloride 20 mEq packet 20 meq PO DAILY Qty: 7 0RF furosemide [Lasix] 20 mg tablet 20 mg PO QAM Qty: 30 5RF magnesium oxide 400 mg magnesium tablet 400 mg PO BID Qty: 90 2RF warfarin 5 mg tablet 10 mg PO QDAY Qty: 180 0RF Protocol: Dose Management Condition: Saturday Dose/Route: 10 mg Instruction: 2 x 5 mg tablets Condition: Saturday Dose/Route: 10 mg Instruction: 2 x 5 mg tablets Condition: Saturday Dose/Route: 10 mg Instruction: 2 x 5 mg tablets Condition: Saturday Dose/Route: 10 mg Instruction: 2 x 5 mg tablets Condition: Dose/Route: 10 mg Instruction: 2 x 5 mg tablets Condition: Saturday Dose/Route: 10 mg Instruction: 2 x 5 mg tablets Condition: Saturday Dose/Route: 10 mg Instruction: 2 x 5 mg tablets Protocol Text: Adjustment Start Date: Saturday03/15/23 INR Value: 2.8 INR Date: 03/15/23 Recheck Date: 04/14/23 Follow Up/Referrals: Filemon Reagan MD [Primary Care Provider] - Stand Alone Forms: MyHealth Info Instructions
--- NOTE | 2023-04-05 06:10 | ED.NURSE ---
patient used bathroom 5 times since lasix dose. states breathing feels more improved, slight SOB with ambulation but improved, MD updated.
== END 2023-04-05 06:21 | disposition home or self-care (01) ==
PROVIDERS: Emergency Provider Family Medicine; PCP Internal Medicine
DX: I50.9 Heart failure, unspecified (principal)
CPT/HCPCS: 36415; 71046; 80048; 83880; 85025; 87631; 94640; 94761; 96374; 96375; 99283; 99284; J1940; J2930

== ENCOUNTER 2023-04-06 02:04 | Emergency (ER) | payer MEDICARE, BC, SELFPAY ==
--- OUTSIDE RECORDS SUMMARY | 2023-04-06 02:09 | XMS_ITS | Clinical Summary ---
Author Name Unknown Organization [facility] Address [place], [place] [address] Care Team Providers Care Environmental Engineering Technician Name Role Phone Filemon Reagan MD Primary Care Provider [phone] Allergies No known active allergies Medications Medication [...] Comments Blood Pressure 117/62 03/06/2022 12:42 PM COIL BUILDER Pulse 78 03/06/2022 12:42 PM COIL BUILDER Temperature 36.5 ??C (97.7 ??F) 02/15/2020 10:[address] Respiratory Rate 16 12/07/2018 7:58 AM CDT Oxygen Saturation 97% 03/06/2022 12:42 PM COIL BUILDER Inhaled Oxygen Concentration - - Weight 73.5 kg (162 lb) 03/06/2022 12:42 PM COIL BUILDER Height 177.8 cm (5' 10) 03/06/2022 12:42 PM COIL BUILDER Body Mass Index 23.24 03/06/2022 12:42 PM COIL BUILDER Plan of Treatment Upcoming Encounters Date Type Department Care Team (Late st Contact Info) Description 04/12/2023 11:00 AM COIL BUILDER Office Visit [facility] [address] [place] [address] Ric Zepeda MD [address] [place] [address] [phone] Health Maintenance Due Date Last Done Comments [...] Documents on File Type Date Recorded 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
[2023-04-06 02:10] VITALS: BP 165/89; PULSE 94; RESP 20; TEMP 36.6; O2SAT 95; BMI 22.4
--- NOTE | 2023-04-06 02:19 | CRLHL7_ITS ---
For Patients: As a result of the 21st Century Cures Act, medical imaging exams and procedure reports are released immediately into your electronic medical record. You may view this report before your referring provider. If you have questions, please contact your health care provider. INDICATION: Shortness of breath. TECHNIQUE: CT Pulmonary Angiogram examination was performed after the administration of 95 mL Isovue 370 contrast intravenously. COMPARISON: Chest radiographs 04/05/2019. FINDINGS: Devices: Left anterior chest wall pacemaker pulse generator. Lower neck: There may be a hypodense right thyroid lobe nodule is poorly evaluated CT and due to adjacent streak artifact. Cardiovascular: Contrast opacification of the pulmonary arterial tree is adequate. Mildly ectatic ascending thoracic aorta measuring 3.5 cm. Pulmonary artery is normal in caliber. No pulmonary embolus. Mild atherosclerotic calcifications of the aortic arch. Biatrial enlarged. No right heart strain. No significant coronary arterial calcifications. Lungs: There is a mosaic attenuation pattern of opacification, nonspecific but can be seen with atypical infection, edema and/or air trapping. Linear bandlike opacifications of the lung bases likely due to subsegmental atelectasis and/or scarring. No focal consolidation. No suspicious pulmonary masses. Mild pulmonary vascular congestion. Biapical pleural parenchymal scarring. Airways: The trachea remains patent and midline. Mild diffuse peribronchial wall thickening with several foci of mucoid impaction in the left lower lobe. Pleura: No pleural effusions or pneumothorax. Lymph nodes: No pathologic mediastinal or axillary lymphadenopathy by size criteria Chest wall: Moderate pectus excavatum deformity with Tejinder index of 3.4. Upper abdomen: Visualized portions unremarkable. Bones: Degenerative changes of the visualized thoracolumbar spine. No acute osseous abnormalities. There is dextroscoliosis at the thoracolumbar junction with advance associated degenerative changes. IMPRESSION: 1. No pulmonary embolus. No CT evidence of right heart strain. 2. Mildly ectatic aorta measuring 3.5 cm. Biatrial enlargement. 3. There is a mosaic attenuation pattern of opacification, nonspecific but can be seen with atypical infection, edema and/or air trapping. Mild pulmonary vascular congestion. Linear bandlike opacifications of the lung bases likely due to subsegmental atelectasis and/or scarring. Please note that all CT scans at this facility use dose modulation, iterative reconstruction, and/or weight-based dosing when appropriate to reduce radiation dose to as low as reasonably achievable. Dictated by Leo Tee MD @ 04/06/2023 3:14:12 AM (Electronically Signed)
--- NOTE | 2023-04-06 02:36 | ED_ITS ---
HPI - SOB/Dyspnea General Chief Complaint: Shortness of Breath/Dyspnea Stated Complaint: Trouble breathing Time Seen by Provider: 04/06/23 02:12 History of Present Illness HPI Narrative: Patient is a an 87-year-old woman who is actually my primary care patient. She has chronic atrial fibrillation congestive heart failure and is status post pacemaker placement. She is in earlier today for evaluation of shortness of breath she tested negative for a viral etiologies. Chest x-ray showed no acute abnormalities and patient was treated and released after her Lasix was increased. Patient continues to feel poorly with shortness of breath. She describes no chest pain orthopnea no PND. She has had no sputum production no nausea no vomiting no abdominal pain. She is concerned by the increased level shortness of breath and increased work of breathing comes in for further evaluat ion. Related Data Home Medications Medication Instructions Recorded Confirmed calcium carbonate 500 mg-vitamin 1 tab PO BID 10/18/21 01/01/23 D3 5 mcg (200 unit) tablet loratadine 10 mg tablet See Rx Instructions PO QDAY 10/18/21 01/01/23 zinc sulfate 66 mg tablet 66 mg PO QDAY 10/18/21 01/01/23 sotalol 120 mg tablet 80 mg PO BID 07/20/22 01/01/23 Previous Rx's Medication Instructions Recorded potassium chloride 20 mEq oral 20 meq PO DAILY #7 ea 05/16/22 packet losartan 50 mg tablet 50 mg PO QDAY #90 tabs 07/20/22 furosemide 20 mg tablet (Lasix) 20 mg PO QAM CHF #30 tabs 01/15/23 magnesium oxide 400 mg PO BID Atrial Fibrillation 02/27/23 #90 tabs warfarin 5 mg tablet 10 mg PO QDAY #180 tabs 03/01/23 Allergies Allergy/AdvReac Type Severity Reaction Status Date / Time No Known Drug Allergies Allergy Verified 01/01/23 09:56 Review of Systems Status of ROS: Reports: 10 or more systems reviewed and unremarkable except as noted in History and below [facility] Medical History Atrial fibrillation ?I48.91 - Unspecified atrial fibrillation (ICD-10) Mitral regurgitation ?I34.0 - Nonrheumatic mitral (valve) insufficiency (ICD-10) COVID-19 ?U07.1 - COVID-19 (ICD-10) Congestive heart failure ?I50.9 - Heart failure, unspecified (ICD-10) Blunt injury of chest ?S29.8XXA - Other specified injuries of thorax, initial encounter (ICD-10) History of sarcoidosis (02/24/09) ?Z86.2 - Personal history of diseases of the blood and blood-forming organs and certain disorders involving the immune mechanism (ICD-10) History of benign breast biopsy (02/24/09) ?Z98.890 - Other specified postprocedural states (ICD-10) History of basal cell carcinoma (02/24/09) ?Z85.828 - Personal history of other malignant neoplasm of skin (ICD-10) Surgical History Status post cataract extraction (01/18/11) ?Z98.49 - Cataract extraction status, unspecified eye (ICD-10) History of section (02/24/09) ?Z98.891 - History of uterine scar from previous surgery (ICD-10) Social History What is your current living situation?: I presently have a place to live Problems where you live: no known problems In the past 12 months, utilities in danger of being shut off: no In past 12 months, lack of transportation kept you from medical appts, meetings, work, or getting things needed for daily living: no In the past 12 mos, have been you worried that your food would run out before you had money to buy more?: never true In the past 12 mos, the food you bought just didn't last and you didn't have money to buy more?: never true Smoking Status: Former smoker Second hand tobacco smoke exposure: No How often do you have a drink containing alcohol: monthly or less How many standard drinks containing alcohol do you have on a typical day: 1 or 2 How often do you have six or more drinks on one occasion: Never AUDIT-C Alcohol total score: 1 Non-prescribed substance use: denies use How often does anyone, including family, friends and others, physically hurt you : never How often does anyone, including family, friends and others, insult or talk down to you: never How often does anyone, including family, friends and others, threaten you with harm: never How often does anyone, including family, friends and others, scream or curse at you: never Little interest or pleasure in doing things: not at all Feeling down, depressed, or hopeless: not at all service: No Exam Narrative: Exam Narrative: EXAM GENERAL: Patient appears uncomfortable. Pursed lipped breathing noted EYES: No scleral icterus. LYMPH: No supraclavicular or cervical lymphadenopathy. SKIN: Visible skin seen during exam normal or with benign process only. EXT: No dependent lower extremity pedal edema. HEART: Regular rate and rhythm with no murmurs, rubs, or gallops. LUNGS: expiratory wheezes noted bilaterally. ABD: Soft, non tender, non distended. PSYCH: Good eye contact, speech is not pressured. Const: Vital Signs, click to edit/add: Vital Signs - 24 hr 04/06/23 02:10 04/06/23 02:38 Temperature 97.9 F Pulse Rate [Right Pulse Oximeter] 94 Respiratory Rate 20 Blood Pressure [Ri ght Upper Arm] 165/89 H Pulse Oximetry 95 95 Oxygen Delivery Me thod Room Air Course Course ED Course: I do think we should proceed with CT of the chest. Patient is anticoagulated sub elected not do PE protocol. I am concerned she may have bronchiectasis or pneumonia. CBC electrolytes troponin EKG also pending. Vital Signs Vital signs: Initial Vital Signs Temperature 97.9 F 04/06/23 02:10 Temperature Source Temporal Artery Scan 04/06/23 02:10 Pulse Rate 94 04/06/23 02:10 Respiratory Rate 20 04/06/23 02:10 Blood Pressure 165/89 H 04/06/23 02:10 Blood Pressure Mean 114 H 04/06/23 02:10 Blood Pressure Position Sitting 04/06/23 02:10 Pulse Oximetry 95 04/06/23 02:10 Oxygen Delivery Method Room Air 04/06/23 02:10 Vital Signs Temperature 97.9 F 04/06/23 02:10 Pulse Rate 94 04/06/23 02:10 Respiratory Rate 20 04/06/23 02:10 Blood Pressure 165/89 H 04/06/23 02:10 Pulse Oximetry 95 04/06/23 02:10 Oxygen Delivery Method Room Air 04/06/23 02:10 Temperature 97.9 F 04/06/23 02:10 Pulse Rate 94 04/06/23 02:10 Respiratory Rate 20 04/06/23 02:10 Blood Pressure 165/89 H 04/06/23 02:10 Pulse Oximetry 95 04/06/23 02:38 Oxygen Delivery Method Room Air 04/06/23 02:10 Medications Administered Medications: Generic Name Dose Route Start Last Admin Trade Name Freq PRN Reason Stop Dose Admin Albuterol/Ipratropium 1 neb 04/06/23 02:59 04/06/23 02:40 Iprat-Albut 0.5-2.5 Mg/3 Ml Neb IH 04/06/23 03:00 1 neb ONCE ONE Administration MDM - SOB/Dyspnea MDM Narrative Medical decision making narrative: patient is a 87-year-old woman who presents with shortness of breath. She had been seen with last 24 hours had negative workup for viral etiology. Chest x- ray was unremarkable. I did do a CT of her chest which showed no acute abnormalities. She does saturate well on room air and did improve with a DuoNeb. Labs are unremarkable she is fully anticoagulated. I did elect to treat her with prednisone for 5 days as well as albuterol. She is my primary care patient will see her on Saturday. She will return if symptoms worsen. Working diagnosis is upper respiratory infection. Differential Diagnosis Differential diagnosis: Likely acute exacerbation of chronic obstructive airways disease, congestive heart failure, community acquired pneumonia, asthma with exacerbation and pulmonary embolism Lab Data Labs: Lab Results 04/06/23 Range/Units 03:02 WBC 5.08 (4.50-11.00) K/uL RBC 4.05 (4.00-5.20) m/uL Hgb 13.3 (12.0-16.0) gm/dL Hct 39.6 (33.0-51.0) % MCV 98 (80-100) fL MCH 33 (26-34) pg MCHC 34 (32-36) gm/dL RDW Coeff of Juanita 13.6 (11.5-15.5) % Plt Count 146 (140-440) K/uL Neut % (Auto) 64.5 (42.0-72.0) % Lymph % (Auto) 15.2 L (20-44) % [place] % (Auto) 19.5 H (0.0-11.0) % Eos % (Auto) 0.6 (0.0-7.0) % Baso % (Auto) 0.2 (0.0-3.0) % Neut # (Auto) 3.28 (1.7-7.0) K/uL Lymph # (Auto) 0.80 L (0.90-2.90) K/uL [place] # (Auto) 1.00 H (0.00-0.90) K/UL Eos # (Auto) 0.03 (0.00-0.50) K/uL Baso # (Auto) 0.01 (0.00-0.30) K/uL Abs Immat Gran (auto) 0.00 (0.00-0.30) K/uL Imm/Tot Granulo (auto) 0.0 % INR 2.53 H (0.91-1.10) Sodium 126 L (135-149) mmol/L Potassium 3.8 (3.6-5.1) mmol/L Chloride 89 L (96-114) mmol/L Carbon Dioxide 30 (20-32) mmol/L Anion Gap 7 (7-15) mEq/L BUN 30 (7-30) mg/dL Creatinine 1.1 (0.5-1.5) mg/dL Estimated Creat Clear 37.72 Estimated GFR 49 ml/min Glucose 109 (60-115) mg/dL Calcium 8.6 (8.4-10.6) mg/dL Discharge Plan Discharge Clinical Impression: Bronchitis Patient Disposition: Home, Self-Care Condition: Stable Instructions: Acute Bronchitis (ED) Additional Instructions: albuterol prednisone continue current medications follow-up with Dr. Reagan 3:00 p.m. Saturday Activity Level: No Restrictions Discharge Diet: Regular Prescriptions: No Action calcium carbonate-vitamin D3 500 mg-5 mcg (200 unit) tablet 1 tab PO BID loratadine 10 mg tablet See Rx Instructions PO QDAY Rx Instructions: 10 mg (PRN) PO every day; zinc sulfate 66 mg tablet 66 mg PO QDAY losartan 50 mg tablet 50 mg PO QDAY Qty: 90 3RF sotalol 120 mg tablet 80 mg PO BID potassium chloride 20 mEq packet 20 meq PO DAILY Qty: 7 0RF furosemide [Lasix] 20 mg tablet 20 mg PO QAM Qty: 30 5RF magnesium oxide 400 mg magnesium tablet 400 mg PO BID Qty: 90 2RF warfarin 5 mg tablet 10 mg PO QDAY Qty: 180 0RF Protocol: Dose Management Condition: Saturday Dose/Route: 10 mg Instruction: 2 x 5 mg tablets Condition: Saturday Dose/Route: 10 mg Instruction: 2 x 5 mg tablets Condition: Saturday Dose/Route: 10 mg Instruction: 2 x 5 mg tablets Condition: Saturday Dose/Route: 10 mg Instruction: 2 x 5 mg tablets Condition: Dose/Route: 10 mg Instruction: 2 x 5 mg tablets Condition: Saturday Dose/Route: 10 mg Instruction: 2 x 5 mg tablets Condition: Saturday Dose/Route: 10 mg Instruction: 2 x 5 mg tablets Protocol Text: Adjustment Start Date: Saturday03/15/23 INR Value: 2.8 INR Date: 03/15/23 Recheck Date: 04/14/23 Follow Up/Referrals: Filemon Reagan MD [Primary Care Provider] - Stand Alone Forms: [employer] Info Instructions
[2023-04-06 02:38] VITALS: O2SAT 95
[2023-04-06] MEDS: IPRAT-ALBUT 0.5-2.5 MG/3 ML NEB 1 NEB IH (02:40)
[2023-04-06 03:09] LABS: Basophils Absolute Auto 0.01 K/uL (0.00-0.30); Basophils Percent Auto 0.2 % (0.0-3.0); Eosinophils Absolute Auto 0.03 K/uL (0.00-0.50); Eosinophils Percent Auto 0.6 % (0.0-7.0); Hematocrit 39.6 % (33.0-51.0); Hemoglobin* 13.3 gm/dL (12.0-16.0); Lymphocytes Percent Auto 15.2 % (20-44); Mean Corpuscular HGB Conc 34 gm/dL (32-36); Mean Corpuscular Hemoglobin 33 pg (26-34); Mean Corpuscular Volume 98 fL (80-100); Monocytes Percent Auto 19.5 % (0.0-11.0); Neutrophils Absolute Auto 3.28 K/uL (1.7-7.0); Neutrophils Percent Auto 64.5 % (42.0-72.0); Platelet Count* 146 K/uL (140-440); RDW Coefficient of Variation % 13.6 % (11.5-15.5); Red Blood Count 4.05 m/uL (4.00-5.20); White Blood Count* 5.08 K/uL (4.50-11.00)
[2023-04-06 03:12] LABS: Slide Review Reflex No
[2023-04-06 03:28] LABS: Chloride* 89 mmol/L (96-114); Potassium* 3.8 mmol/L (3.6-5.1); Sodium* 126 mmol/L (135-149)
[2023-04-06 03:31] LABS: Anion Gap 7 mEq/L (7-15); Blood Urea Nitrogen* 30 mg/dL (7-30); Calcium* 8.6 mg/dL (8.4-10.6); Carbon Dioxide* 30 mmol/L (20-32); Creatinine* 1.1 mg/dL (0.5-1.5); Est. Creatinine Clearance* 37.72; Estimated Glomerular Filt Rate 49 ml/min; Glucose* 109 mg/dL (60-115); INR 2.53 (0.91-1.10); Prothrombin Time 29.1 Seconds
[2023-04-06 03:50] LABS: Troponin I* < 0.01 ng/mL (0.01-0.04)
[2023-04-06 04:00] VITALS: BP 135/74; PULSE 89; RESP 20; TEMP 36.6; O2SAT 95
[2023-04-06 04:14] VITALS: BP 135/74; PULSE 89; RESP 20; TEMP 36.6
== END 2023-04-06 04:14 | disposition home or self-care (01) ==
PROVIDERS: Emergency Provider Internal Medicine; PCP Internal Medicine
DX: J40 Bronchitis, not specified as acute or chronic (principal)
CPT/HCPCS: 36415; 71275; 80048; 84484; 85025; 85610; 93005; 94640; 94761; 99283; 99284; 99285; Q9967

== ENCOUNTER 2023-05-15 09:42 | Outpatient (CLI) | payer MEDICARE, BC, SELFPAY ==
--- OUTSIDE RECORDS SUMMARY | 2023-05-15 09:53 | XMS_ITS | Clinical Summary ---
Author Name Unknown Organization [email or web address] [facility] Address [place], [place] [address] Care Team Providers Care Salad Chef Name Role Phone Filemon Reagan MD Primary Care Provider [phone] Allergies No known active allergies Medications Medication [...] Active acetaminophen (TYLENOL EXTRA STRGTH) 500 mg tabletIndications :Atrial fibrillation, persistent (HC) Take 2 tablets by mouth every 6 hours if needed (For mild pain.). Max acetaminophen dose: 4000mg in 24 hrs. 0 01/02/2017 Active magnesium oxide (MAG-OX 400) 400 mg tabletIndications :Hypomagnesemia Take 1 tablet by mouth 2 times daily. 60 tablet 2 01/29/2017 Active warfarin (COUMADIN) 5 mg tablet Take 12.5 mg on Saturday/Saturday/ riday and 10 mg all other days 0 Active loratadine (CLARITIN) 10 mg tablet Take 10 mg by mouth once daily if needed for Allergy Symptoms. 0 Active furosemide (LASIX) 20 mg tablet Take 1 Tablet (20 mg) by mouth every morning. 0 07/20/2022 Active losartan (COZAAR) 50 mg tablet Take 1 Tablet (50 mg) by mouth once daily. 0 07/20/2022 Active azithromycin (ZITHROMAX) 250 mg tablet Take 500 mg (2 tabs) by mouth on day 1, then 250 mg (1 tab) daily for days 2-5. 0 04/10/2023 Active methylPREDNISolon e (MEDROL DOSEPAK) 4 mg tablet Take by mouth as instructed per packaging. 0 04/10/2023 Active sotaloL (BETAPACE) 80 mg tabletIndications :Dizziness,Paroxy smal atrial fibrillation (HC) Take 1 Tablet (80 mg) by mouth every 12 hours. 180 Tablet 3 05/13/2023 Active sotaloL (BETAPACE) 80 mg tabletIndications :Dizziness,Paroxy smal atrial fibrillation (HC) Take 1 Tablet (80 mg) by mouth every 12 hours. 180 Tablet 3 03/06/2022 4 Discontinu ed(Reorder (E-cancel not sent)) Active Problems Patient Care Coordination No te [...] Atrial fibrillation Mitral regurgitation Sinus node dysfunction Encounters Date Type Department Care Team Description 05/13/2023 Telephone [employer] [facility] [place] [address] [facility] [address] [place] [address] Harjeet Wolff MD Medication Management 05/07/2023 Travel 04/12/2023 11:00 AM INDUCTION COORDINATION ENGINEER Office Visit [facility] [address] [place] [address] Ric Zepeda MD from Last 3 Months Social History Tobacco Use Types Packs/Day Years [...] Comments Blood Pressure 117/62 03/06/2022 12:42 PM INDUCTION COORDINATION ENGINEER Pulse 78 03/06/2022 12:42 PM INDUCTION COORDINATION ENGINEER Temperature 36.5 ??C (97.7 ??F) 02/15/2020 10:[address] Respiratory Rate 16 12/07/2018 7:58 AM CDT Oxygen Saturation 97% 03/06/2022 12:42 PM INDUCTION COORDINATION ENGINEER Inhaled Oxygen Concentration - - Weight 73.5 kg (162 lb) 03/06/2022 12:42 PM INDUCTION COORDINATION ENGINEER Height 177.8 cm (5' 10) 03/06/2022 12:42 PM INDUCTION COORDINATION ENGINEER Body Mass Index 23.24 03/06/2022 12:42 PM INDUCTION COORDINATION ENGINEER Plan of Treatment Upcoming Encounters Date Type Department Care Team (Late st Contact Info) Description 05/15/2023 10:00 AM INDUCTION COORDINATION ENGINEER Ancillary Procedure [facility] [address] [place] [address] 09/03/2023 Cardiac Device Check [facility] [phone] Health Maintenance Due Date Last Done Comments Pneumococcal series for age 65+ (1 of 2 - PCV) [birth year]/11/1941 Tdap 1946 Tetanus booster 1957 Zoster (shingles) series for age 50+ (1 of 2) 11/11/1987 DEXA/DXA scan for age 65+ 2002 Medicare Wellness for age 65+ 2002 Depression screening for age 12+ 11/27/2019 11/27/19 Influenza for age 65+ 11/23/2022 BMI (ht and wt on same day) for age 18+ 03/06/2023 03/06/2022, 02/13/2021, 02/15/2020, Additional history exists COVID-19 vaccine series Completed 01/23/20, 03/01/2022, 08/11/2021, Additional history exists Advance Directives Documents on File Type Date Recorded Patient News Gathering Technician Expl anation Healthcare Directive 12/27/2016 3:20 PM [...] 1:18 PM 11/01/2016 2:37 PM Care Teams Salad Chef Relationship Specialty Start Date End Date Filemon Reagan MD [address] [place] [id number] PCP - General Internal Medicine 05/02/17
== END 2023-05-15 09:43 | disposition home or self-care (01) ==
LOC: RAD 09:42
PROVIDERS: PCP Internal Medicine; Visit Provider Internal Medicine Cardiovascular Disease
DX: I34.0 Nonrheumatic mitral (valve) insufficiency (principal); I51.7 Cardiomegaly
CPT/HCPCS: 93306

== ENCOUNTER 2023-08-15 08:56 | Outpatient (CLI) | payer MEDICARE, BC, SELFPAY ==
--- OUTSIDE RECORDS SUMMARY | 2023-08-15 08:59 | XMS_ITS | Clinical Summary ---
Author Organization [employer] [facility] Address [place], [place] [address] Care Team Providers Care Tool Profiling Machine Set Up Operator Name Role Phone Filemon Reagan MD Primary Care Provider [phone] Allergies No known active allergies Medications Medication Sig Dispensed Refills Start Date End Date Status ZINC ACETATE ORAL Take 66 mg by mouth every Saturday, Saturday and Saturday. Active CALCIUM CARBONATE/VITAMIN D3 (CALCIUM + D ORAL) Take 600 mg by mouth 2 times daily. Active MULTIVITAMIN (MULTIPLE VITAMIN ORAL) Take 1 tablet by mouth once daily. Active acetaminophen (TYLENOL EXTRA STRGTH) 500 mg [...] iday and 10 mg all other days Active loratadine (CLARITIN) 10 mg tablet Take 10 mg by mouth once daily if needed for Allergy Symptoms. Active furosemide (LASIX) 20 mg tablet Take 1 Tablet (20 mg) by mouth every morning. 0 07/20/2022 Active losartan (COZAAR) 50 mg tablet Take 1 Tablet (50 mg) by mouth once daily. 0 07/20/2022 Active azithromycin (ZITHROMAX) 250 mg tablet Take 500 mg (2 tabs) by mouth on day 1, then 250 mg (1 tab) daily for days 2-5. 04/10/2023 Active methylPREDNISolone (MEDROL DOSEPAK) 4 mg tablet Take by mouth as instructed per packaging. 04/10/2023 Active sotaloL (BETAPACE) 80 mg tabletIndications: Dizziness,Paroxysm al atrial fibrillation (HC) Take 1 Tablet (80 mg) by mouth every 12 hours. 180 Tablet 3 05/13/2023 Active Active Problems Patient Care Coordination No [...] Encounters Date Type Department Care Team Description 06/03/[address] [place] [address] [place] [id number] Ric Zepeda MD Results (echocardiogram ) from Last 3 Months Social History Tobacco Use Types Packs/Day Years Used Date Smoking Tobacco: Former Cigarettes 0 09/07/1958 - 09/04/1968 Smokeless Tobacco: Never [...] Comments Blood Pressure 117/62 03/06/2022 12:42 PM GOLD LEAF PRINTER Pulse 78 03/06/2022 12:42 PM GOLD LEAF PRINTER Temperature 36.5 ??C (97.7 ??F) 02/15/2020 10:[address] Respiratory Rate 16 12/07/2018 7:58 AM CDT Oxygen Saturation 97% 03/06/2022 12:42 PM GOLD LEAF PRINTER Inhaled Oxygen Concentration - - Weight 73.5 kg (162 lb) 03/06/2022 12:42 PM GOLD LEAF PRINTER Height 177.8 cm (5' 10) 03/06/2022 12:42 PM GOLD LEAF PRINTER Body Mass Index 23.24 03/06/2022 12:42 PM GOLD LEAF PRINTER Plan of Treatment Upcoming Encounters Date Type Department Care Team (Late st Contact Info) Description 09/03/2023 Cardiac Device Check [employer] [facility] [phone] Health Maintenance Due Date Last Done Comments Tdap 1948 Tetanus booster 1957 Zoster (shingles) series for age 50+ (1 of 2) 11/11/1987 DEXA/DXA scan for age 65+ 2002 Medicare Wellness for age 65+ 2002 Pneumococcal series for age 65+ (1 of 1 - PCV) 2002 Depression screening for age 12+ 11/27/2019 11/27/19 BMI (ht and wt on same day) for age 18+ 03/06/2023 03/06/2022, 02/13/2021, 02/15/2020, Additional history exists Influenza for age 65+ 11/24/2023 COVID-19 vaccine series Completed 01/23/20, 03/01/2022, 08/11/2021, Additional history exists Advance Directives Documents on File Type Date Recorded Patient Director Trading Expl anation Healthcare Directive 12/27/2016 3:20 PM * Full Code (Latest Code Status on File) Date Activated Date Inactivated Comments 12/06/2018 7:35 AM 12/07/2018 12:36 PM * Full Code Date Activated Date Inactivated Comments 01/01/2017 6:06 AM 01/02/2017 12:33 PM * Full Code Date Activated Date Inactivated Comments 12/21/2016 7:30 AM 12/21/2016 11:20 AM * Full Code Date Activated Date Inactivated Comments 12/03/2016 10:50 AM 12/03/2016 9:36 PM * Full Code Date Activated Date Inactivated Comments 10/29/2016 1:18 PM 11/01/2016 2:37 PM Care Teams Tool Profiling Machine Set Up Operator Relationship Specialty Start Date End Date Filemon Reagan MD [address] [place] [address] PCP - General Internal Medicine 05/02/17
--- NOTE | 2023-08-15 09:15 | CRLHL7_ITS ---
For Patients: As a result of the Century Cures Act, medical imaging exams and procedure reports are released immediately into your electronic medical record. You may view this report before your referring provider. If you have questions, please contact your health care provider. BILATERAL SCREENING MAMMOGRAM WITH COMPUTER-AIDED DETECTION AND TOMOSYNTHESIS TECHNIQUE: CC and MLO views were obtained. These mammographic images have been obtained using full-field digital technique. These mammographic images were interpreted with the benefit of computer-aided detection. Breast Tomosynthesis was used in this interpretation. COMPARISON FILM: 03/10/20, 06/10/18, 06/21/16. FINDINGS: There are scattered areas of fibroglandular density. IMPRESSION: There is no radiographic evidence for malignancy. ASSESSMENT: BI-RADS Category 1: Negative RECOMMENDATION: Routine screening mammogram in 1 year. A lay language report of this examination will be provided to the patient. Alex Jean Baptiste M.D. Diagnostic Radiologist [email or web address] SP/Dictated by: Alex Jean Baptiste MD @ 08/15/2023 12:54:00 PM (Electronically Signed)
== END 2023-08-15 08:57 | disposition home or self-care (01) ==
LOC: MAMMO 08:57
PROVIDERS: PCP Internal Medicine; Visit Provider Internal Medicine
DX: Z12.31 Encounter for screening mammogram for malignant neoplasm of breast (principal)
CPT/HCPCS: 77063; 77067

== ENCOUNTER 2024-01-06 11:02 | Outpatient (CLI) | payer MEDICARE, BC, SELFPAY ==
--- OUTSIDE RECORDS SUMMARY | 2024-01-06 11:05 | XMS_ITS | Clinical Summary ---
Author Organization [employer] [facility] Address [place], [place] [address] Care Team Providers Care Lab Support Tech Name Role Phone Filemon Reagan MD Primary [...] Comments Blood Pressure 117/62 03/06/2022 12:42 PM RIGGING LOFT REPAIRER Pulse 78 03/06/2022 12:42 PM RIGGING LOFT REPAIRER Temperature 36.5 ??C (97.7 ??F) 02/15/2020 10:[address] Respiratory Rate 16 12/07/2018 7:58 AM CDT Oxygen Saturation 97% 03/06/2022 12:42 PM RIGGING LOFT REPAIRER Inhaled Oxygen Concentration - - Weight 73.5 kg (162 lb) 03/06/2022 12:42 PM RIGGING LOFT REPAIRER Height 177.8 cm (5' 10) 03/06/2022 12:42 PM RIGGING LOFT REPAIRER Body Mass Index 23.24 03/06/2022 12:42 PM RIGGING LOFT REPAIRER Plan of Treatment Upcoming Encounters Date Type Department Care Team (Late st Contact Info) Description 04/07/2024 10:00 AM RIGGING LOFT REPAIRER Cardiac Device Check [facility] [place] [facility] [address] [place] [address] Health Maintenance Due Date Last Done Comments Tdap 1948 Tetanus booster 1957 Zoster (shingles) series for age 50+ (1 of 2) 11/11/1987 DEXA/DXA scan for age 65+ 2002 Medicare Wellness for age 65+ 2002 Pneumococcal series for age 65+ (1 of 1 - PCV) 2002 RSV vaccine for adults or (1 - 1-dose 75+ series) 2012 Depression screening for age 12+ 11/27/2019 11/27/19 BMI (ht and wt on same day) for age 18+ 03/06/2023 03/06/2022, 02/13/2021, 02/15/2020, Additional history exists COVID-19 vaccine series ( season) 2023 01/22/2023, 03/01/2022, 08/11/2021, Additional history exists Influenza for age 65+ 11/24/2023 Procedures Procedure Name Priority Date/Time Associated Diagnosis Comments PACER BAL DUAL CHAMBER WO REPROG Routine 12/04/2023 2:53 PM CDT Fitting or adjustment of cardiac pacemaker from Last 3 Months Advance Directives Documents on File Type Date Recorded Patient Machine Cloth Examiner Expl anation Healthcare Directive 12/27/2016 3:20 PM [...] 1:18 PM 11/01/2016 2:37 PM Care Teams Lab Support Tech Relationship Specialty Start Date End Date Filemon Reagan MD [address] [place] [id number] PCP - General Internal Medicine 05/02/17
== END 2024-01-06 11:03 | disposition home or self-care (01) ==
PROVIDERS: PCP Internal Medicine; Visit Provider Internal Medicine
DX: I10 Essential (primary) hypertension (principal); Z13.6 Encounter for screening for cardiovascular disorders
CPT/HCPCS: 80053; 80061

== ENCOUNTER 2024-01-13 07:52 | Outpatient (CLI) | payer MEDICARE, BC, SELFPAY ==
--- OUTSIDE RECORDS SUMMARY | 2024-01-18 14:24 | XMS_ITS | Clinical Summary ---
Author Organization [employer] [facility] Address [place], [place] [address] Care Team Providers Care Shotweld Operator Name Role Phone Filemon Reagan MD [...] Comments Blood Pressure 117/62 03/06/2022 12:42 PM INVESTIGATIVE AGENT Pulse 78 03/06/2022 12:42 PM INVESTIGATIVE AGENT Temperature 36.5 ??C (97.7 ??F) 02/15/2020 10:[address] Respiratory Rate 16 12/07/2018 7:58 AM CDT Oxygen Saturation 97% 03/06/2022 12:42 PM INVESTIGATIVE AGENT Inhaled Oxygen Concentration - - Weight 73.5 kg (162 lb) 03/06/2022 12:42 PM INVESTIGATIVE AGENT Height 177.8 cm (5' 10) 03/06/2022 12:42 PM INVESTIGATIVE AGENT Body Mass Index 23.24 03/06/2022 12:42 PM INVESTIGATIVE AGENT Plan of Treatment Upcoming Encounters Date Type Department Care Team (Late st Contact Info) Description 04/07/2024 10:00 AM INVESTIGATIVE AGENT Cardiac Device Check [facility] [place] [facility] [address] [place] [address] Health Maintenance Due Date Last [...] on File Type Date Recorded Patient Director Records Management Expl anation Healthcare Directive 12/27/2016 3:20 PM [...] 1:18 PM 11/01/2016 2:37 PM Care Teams Shotweld Operator Relationship Specialty Start Date End Date Filemon Reagan MD [address] [place] [id number] PCP - General Internal Medicine 05/02/17
== END 2024-01-13 07:53 | disposition home or self-care (01) ==
LOC: AMB 01-18 14:22
PROVIDERS: PCP Internal Medicine; Visit Provider Family Medicine
DX: I50.9 Heart failure, unspecified (principal); R06.09 Other forms of dyspnea
CPT/HCPCS: A0425; A0427

== ENCOUNTER 2024-01-13 08:04 | Emergency (ER) | payer MEDICARE, BC, SELFPAY ==
[2024-01-13] VITALS (15 sets, daily range): BP systolic 159–179; BP diastolic 109–125; PULSE 69–91; RESP 20–22; TEMP 36.4; O2SAT 84–96
--- NOTE | 2024-01-13 08:22 | CRLHL7_ITS ---
For Patients: As a result of the Century Cures Act, medical imaging exams and procedure reports are released immediately into your electronic medical record. You may view this report before your referring provider. If you have questions, please contact your health care provider. INDICATION: Short of breath, peripheral edema, bilateral crackles and wheezes TECHNIQUE: Two views chest radiograph. COMPARISON: 04/08/2023 FINDINGS: Devices: Left subclavian dual lead transvenous pacemaker with right atrial and right ventricular leads in similar position. Lung volumes are slightly hyperinflated with diaphragmatic flattening. Diffuse reticular opacities with superimposed prominent pulmonary vascular markings and peripheral septal lines. Focal nodular scarring in the anterolateral right upper lobe is similar to prior. Trace left pleural effusion. No pneumothorax. Heart size is large but similar to prior. Mildly ectatic descending thoracic aorta is similar to prior. Scoliosis. IMPRESSION: Mild pulmonary edema superimposed on emphysema. Trace left pleural effusion. Dictated by Denise Cuevas MD @ 01/13/2024 9:02:34 AM (Electronically Signed)
--- NOTE | 2024-01-13 08:23 | ED_ITS ---
HPI - General Adult General Date Seen: 01/13/24 Chief complaint: Shortness of Breath/Dyspnea Stated complaint: shortness of breath Time Seen by Provider: 01/13/24 08:21 History of Present Illness HPI narrative: Pleasant 88-year-old female presenting to the ER today by EMS. She is brought in by EMS from her home, where she lives with her . arrived to be at her side shortly after her ambulance arrived and history is of pain from the patient and her . Also from EMS. Per EMS the patient has been getting peripheral edema for the past week or 2 and some dyspnea on exertion. She had more shortness of breath that was persistent throughout the night last night and that her to call the ambulance this morning. She was hypertensive with blood pressure I 80/120. Pulse was initially elevated but now in the 70s. Saturations were in the low 90s. She was wheezy when they arrive so they gave her a DuoNeb EN route. She is feeling somewhat better after the DuoNeb. She denied chest pain. According the patient she has a history of CHF and AFib dating back fiber 6 years. 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 She had a pacemaker for 5 6 we are years. She is on warfarin for stroke prophylaxis. She thinks her and eyes of abnormal in stable lately. She does not recall what other med she is on for her AFib. She is on furosemide. She typically takes 20 mg in the morning. Her primary care provider, Dr. Reagan told her that if she feels like she needs it she can take an extra 10 or 20 mg in the afternoon. She does take extra Lasix sometimes but can not really be specific about how often she takes it. She has been noting increasing peripheral edema for the past couple of weeks. She says it is typical for ankle to be swollen the evening but typically not in the morning. This morning her ankles were still swollen. She has also been noting some dyspnea on exertion for the past couple of weeks or dyspnea ?with any movement. ?. She has been more short of breath throughout the night last night. She called the EMS this morning because she was short of breath. She does not track or weights. She is not having any chest pain. No cough. No exposure to sick people. No fever or chills. The no abdominal pain. No back pain. No nausea or vomiting. Her felt her pulse this morning and it was 150 and very regular. She has a pacemaker. It does not sound like she has a defibrillator. It she did not get any shock. Here in the ER her surveillance monitor shows sinus rhythm with occasional PACs are short runs of AFib with heart rate around 70-71. No tachycardias noted here in the ER. Related Data Home Medications ?Medication ?Instructions ?Recorded ?Confirmed calcium 500 mg (as 1 tab PO BID 10/18/21 01/08/24 carbonate)-vitamin D3 5 mcg (200 unit) tablet loratadine 10 mg tablet See Rx Instructions PO QDAY 10/18/21 01/08/24 zinc sulfate 66 mg tablet 66 mg PO QDAY 10/18/21 01/08/24 sotalol 120 mg tablet 80 mg PO BID 07/20/22 01/08/24 albuterol sulfate 90 mcg/actuation inhalation 04/08/23 01/08/24 aerosol inhaler prednisone 20 mg tablet 20 mg PO BID 04/08/23 01/08/24 Previous Rx's ?Medication ?Instructions ?Recorded potassium chloride 20 mEq oral 20 meq PO DAILY #7 ea 05/16/22 packet furosemide 20 mg tablet (Lasix) 20 mg PO QAM CHF #30 tabs 07/05/23 losartan 50 mg tablet 50 mg PO QDAY #90 tabs 07/17/23 magnesium oxide 400 mg PO BID Atrial Fibrillation 11/13/23 #90 tabs warfarin 5 mg tablet 10 mg PO QDAY #180 tabs 12/04/23 albuterol sulfate 90 mcg/actuation 2 inh inhalation Q4-6H PRN #1 ea 01/13/24 breath activated powder inhaler furosemide 40 mg tablet (Lasix) 40 mg PO DAILY #7 tabs 01/13/24 Allergies Allergy/AdvReac Type Severity Reaction Status Date / Time No Known Drug Allergies Allergy Verified 01/08/24 09:54 [facility] Medical History (Updated 01/13/24 @ 12:52 by Jose Amado MD) Atrial fibrillation ?I48.91 - Unspecified atrial fibrillation (ICD-10) Mitral regurgitation ?I34.0 - Nonrheumatic mitral (valve) insufficiency (ICD-10) Congestive heart failure ?I50.9 - Heart failure, unspecified (ICD-10) History of sarcoidosis (02/24/09) ?Z86.2 - Personal history of diseases of the blood and blood-forming organs and certain disorders involving the immune mechanism (ICD-10) History of benign breast biopsy (02/24/09) ?Z98.890 - Other specified postprocedural states (ICD-10) History of basal cell carcinoma (02/24/09) ?Z85.828 - Personal history of other malignant neoplasm of skin (ICD-10) Surgical History Status post cataract extraction (01/18/11) ?Z98.49 - Cataract extraction status, unspecified eye (ICD-10) History of section (02/24/09) ?Z98.891 - History of uterine scar from previous surgery (ICD-10) Social History (Updated 01/08/24 @ 14:18 by Isabel Mireles ~ [facility]) What is your current living situation?: I presently have a place to live Problems where you live: no known problems In the past 12 months, utilities in danger of being shut off: no In past 12 months, lack of transportation kept you from medical appts, meetings, work, or getting things needed for daily living: no In the past 12 mos, have been you worried that your food would run out before you had money to buy more?: never true In the past 12 mos, the food you bought just didn't last and you didn't have money to buy more?: never true Smoking Status: Former smoker Second hand tobacco smoke exposure: No How often do you have a drink containing alcohol: monthly or less How many standard drinks containing alcohol do you have on a typical day: 1 or 2 How often do you have six or more drinks on one occasion: Never AUDIT-C Alcohol total score: 1 Non-prescribed substance use: denies use How often does anyone, including family, friends and others, physically hurt you : never How often does anyone, including family, friends and others, insult or talk down to you: never How often does anyone, including family, friends and others, threaten you with harm: never How often does anyone, including family, friends and others, scream or curse at you: never Little interest or pleasure in doing things: not at all Feeling down, depressed, or hopeless: not at all service: No Exam Narrative: Exam Narrative: Constitutional: Appears well-developed and well-nourished. Alert. Conversant but does appear mildly short of breath while talking. O2 93% room air HENT: Head: Atraumatic. Nose: Nose normal. Mouth/Throat: Oral mucosa is clear and moist. no trismus. Eyes: Conjunctivae normal. EOM normal. Pupils equal, round, and reactive to light. No scleral icterus. Neck: Normal range of motion. Neck supple. No tracheal deviation present. No JVD Cardiovascular: Normal rate, regular rhythm. No gallop. No friction rub. No murmur heard. Symmetric radial and PT artery pulses . Pacemaker in left upper chest. Site looks good. Pulmonary/Chest: Effort normal. No stridor. No respiratory distress. Bilateral inspiratory rales, more in the bases than in the apices. Also subtle expiratory bilateral wheezes. Abdominal: Soft. No distension. No mass. No tenderness. No rebound. No guarding. Musculoskeletal: RUE: Normal range of motion. No tenderness. No deformity LUE: Normal range of motion. No tenderness. No deformity RLE: Normal range of motion. 2+ edema. No tenderness. No deformity LLE: Normal range of motion. 2+ edema. No tenderness. No deformity Neurological: Alert and oriented to person, place, and time. Normal strength. CN II-VII intact. No sensory deficit. GCS eye subscore is 4. GCS verbal subscore is 5. GCS motor subscore is 6. Normal coordination Skin: Skin is warm and dry. No rash noted. No pallor. Normal capillary refill. Psychiatric: Normal mood. Normal affect. Const: Vital Signs, click to edit/add: Vital Signs - 24 hr 01/13/24 08:19 01/13/24 08:59 01/13/24 09:00 Temperature 97.6 F Pulse Rate 69 79 Pulse Rate [Right Pulse Oximeter] 79 Respiratory Rate 22 Blood Pressure Blood Pressure [Ri ght Upper Arm] 179/125 H Pulse Oximetry 90 95 96 Oxygen Delivery Me thod Room Air 01/13/24 09:02 01/13/24 09:15 01/13/24 09:40 Temperature Pulse Rate 72 76 91 Pulse Rate [Right Pulse Oximeter] Respiratory Rate 20 Blood Pressure 164/111 H Blood Pressure [Ri ght Upper Arm] Pulse Oximetry 92 93 Oxygen Delivery Me thod 01/13/24 09:45 01/13/24 09:50 01/13/24 10:00 Temperature Pulse Rate 80 75 75 Pulse Rate [Right Pulse Oximeter] Respiratory Rate Blood Pressure 164/109 H Blood Pressure [Ri ght Upper Arm] Pulse Oximetry 92 95 93 Oxygen Delivery Me thod 01/13/24 10:02 01/13/24 10:15 01/13/24 10:30 Temperature Pulse Rate 83 91 83 Pulse Rate [Right Pulse Oximeter] Respiratory Rate Blood Pressure 164/116 H Blood Pressure [Ri ght Upper Arm] Pulse Oximetry 92 91 92 Oxygen Delivery Me thod 01/13/24 10:32 01/13/24 10:47 Temperature Pulse Rate 81 85 Pulse Rate [Right Pulse Oximeter] Respiratory Rate Blood Pressure 159/114 H Blood Pressure [Ri ght Upper Arm] Pulse Oximetry 92 84 L Oxygen Delivery Me thod Course Course ED Course: Recheck-after nebulizer repeat lung exam reveals rales but no ongoing wheezes. Patient feels about the same, i.e. she is not short of breath while resting but does get short of breath with exertion, even walking 10 ft down the lanza to go to the bathroom. Oxygen saturation still 93% room air. Reevaluation(s) Reevaluation #1: Recheck-chest x-ray does confirm mild pulmonary edema. BNP mildly elevated 3400. EKG nonischemic. Troponin undetectable. No evidence for ACS. Blood pressure still elevated at about 179/115 Lasix ordered. Reevaluation #2: Recheck-ambulatory in the hallway because she needs to urinate after Lasix. Reevaluation #3: Recheck-notes that her breathing seems somewhat better. Has not had a Lasix for couple of hours and has put out a fair amount of urine. She has been to the bathroom multiple times. We have been unable to catch urine for strict output measurement Vital Signs Vital signs: Initial Vital Signs Temperature 97.6 F 01/13/24 08:19 Temperature Source Temporal Artery Scan 01/13/24 08:19 Pulse Rate 79 01/13/24 08:19 Respiratory Rate 22 01/13/24 08:19 Blood Pressure 179/125 H 01/13/24 08:19 Blood Pressure Mean 143 H 01/13/24 08:19 Blood Pressure Position Sitting 01/13/24 08:19 Pulse Oximetry 90 01/13/24 08:19 Oxygen Delivery Method Room Air 01/13/24 08:19 Vital Signs Temperature 97.6 F 01/13/24 08:19 Pulse Rate 79 01/13/24 08:19 Respiratory Rate 22 01/13/24 08:19 Blood Pressure 179/125 H 01/13/24 08:19 Pulse Oximetry 90 01/13/24 08:19 Oxygen Delivery Method Room Air 01/13/24 08:19 Temperature 97.6 F 01/13/24 08:19 Pulse Rate 85 01/13/24 10:47 Respiratory Rate 20 01/13/24 09:02 Blood Pressure 159/114 H 01/13/24 10:32 Pulse Oximetry 84 L 01/13/24 10:47 Oxygen Delivery Method Room Air 01/13/24 08:19 Medications Administered Medications: Discontinued Medications Generic Name Dose Route Start Last Admin Trade Name Freq PRN Reason Stop Dose Admin Albuterol 2.5 mg 01/13/24 08:22 01/13/24 08:55 Albuterol Sulfate 2.5 Mg/3 Ml Vial.Neb NEB 01/13/24 08:23 2.5 mg ONCE ONE Administration Furosemide 40 mg 01/13/24 10:22 01/13/24 10:59 Furosemide 10 Mg/Ml Inj IVP 01/13/24 10:23 40 mg ONCE ONE Administration Medical Decision Making MDM Narrative Medical decision making narrative: This patient presents to the ER today for evaluation of dyspnea on exertion for the past couple of weeks with peripheral edema and now more persistent shortness of breath overnight last night. Differential was broad. She has a history of AFib with a pacemaker. She does have a functioning pacemaker here in the ER this morning. She may have had an elevated heart rate at home but her rate here in the ER has been solidly in the 70s. No evidence for any ongoing arrhythmia. With her history of CHF and recent peripheral edema, concern is for recurrent CHF. BNP is mildly elevated. Chest x-ray does show mild pulmonary edema and a very small left pleural effusion which would be consistent with CHF. Fortunately she is not in severe respiratory distress requiring CPAP or high- dose nitrates. She is fairly hypertensive. Additional Lasix (normal home dose 20 mg in the morning, so gave 40 mg IV here in the ER) administered. Will send her home with a prescription for Lasix 40 mg every morning for the next week (this is twice her normal daily dose). She will follow-up with her primary care provider for recheck in clinic later this week. She also had some wheezing per EMS and received a DuoNeb prior to arrival. She had minimal ongoing wheezing here in the ER that resolved after her albuterol neb. Suspect may be some component of asthma as well. However symptomatic lately she does not feel any better or worse after resolution of the wheezing. Therefore I suspect the majority of her dyspnea is probably due to CHF. We considered possible ACS, however workup with EKG and troponin is negative. Given time since onset of symptoms, I do not think the patient needs to be admitted for further sets of enzymes. EKG shows no evidence for pericarditis. Clinical presentation not suggestive of myocarditis. Chest x-ray shows no evidence for pneumonia, pneumothorax, rib fracture, cardiomegaly. Mediastinum is normal on the x-ray. No chest pain to suggest aortic dissection. We considered PE for this patient. However with obvious at alternative explanation for her dyspnea would hold off on CT scan or D-dimer testing for now. With reasonable clinical confidence, I think the patient is safe for outpatient follow up. Discussed return precautions. Questions answered. Patient and her and her family voice comfort with the plan. Lab Data Labs: Lab Results 01/13/24 01/13/24 Range/Units 08:22 08:33 WBC 6.36 (4.50-11.00) K/uL RBC 4.21 (4.00-5.20) m/uL Hgb 13.9 (12.0-16.0) gm/dL Hct 42.0 (33.0-51.0) % MCV 100 (80-100) fL MCH 33 (26-34) pg MCHC 33 (32-36) gm/dL RDW Coeff of Juanita 13.7 (11.5-15.5) % Plt Count 183 (140-440) K/uL Neut % (Auto) 80.1 H (42.0-72.0) % Lymph % (Auto) 9.4 L (20-44) % [place] % (Auto) 7.9 (0.0-11.0) % Eos % (Auto) 1.9 (0.0-7.0) % Baso % (Auto) 0.5 (0.0-3.0) % Neut # (Auto) 5.10 (1.7-7.0) K/uL Lymph # (Auto) 0.60 L (0.90-2.90) K/uL [place] # (Auto) 0.50 (0.00-0.90) K/UL Eos # (Auto) 0.12 (0.00-0.50) K/uL Baso # (Auto) 0.03 (0.00-0.30) K/uL Abs Immat Gran (auto) 0.01 (0.00-0.30) K/uL Imm/Tot Granulo (auto) 0.2 % INR 2.38 H (0.91-1.10) Sodium 129 L (135-149) mmol/L Potassium 4.3 (3.6-5.1) mmol/L Chloride 93 L (96-114) mmol/L Carbon Dioxide 30 (20-32) mmol/L Anion Gap 6 L (7-15) mEq/L BUN 14 (7-30) mg/dL Creatinine 0.8 (0.5-1.5) mg/dL Estimated GFR 72 ml/min Glucose 116 H (60-115) mg/dL Calcium 8.8 (8.4-10.6) mg/dL Troponin I < 0.01 L (0.01-0.04) ng/mL NT-Pro-B Natriuret Pep 3410 pg/mL SARS-CoV-2 (PCR) Negative SARS-CoV-2 (Negative) Influenza Type A (PCR) Negative PCR FLU A (Negative) Influenza Type B (PCR) Negative PCR FLU B (Negative) Imaging Data Chest x-ray: Attestation: I have reviewed the pertinent imaging results. Radiologist's impression: IMPRESSION: Mild pulmonary edema superimposed on emphysema. Trace left pleural effusion. ECG Data Attestation: I personally reviewed and interpreted this ECG as follows: Interpretation: Be atrial paced rhythm. Rate: 72 WV: 190 QRS axis: Right axis deviation. No pathologic Q-waves. ST segment/T wave: No ST segment elevation or depression. Nonspecific T-wave inversion and flattening V1-V3. QTc: 459 Discharge Plan Discharge Clinical Impression: Congestive heart failure, Asthma Patient Disposition: Home, Self-Care Condition: Stable Instructions: Heart Failure (ED), Asthma (DC) Additional Instructions: As we discussed, I suspect that your shortness of breath is caused by a combination of asthma and congestive heart failure. To treat her CHF and get the fluid out of your lungs we will increase her dose of Lasix up to 40 mg by mouth every morning for the next week. Please recheck with your regular doctor within the next 5-7 days to get a recheck and determine the appropriate dose of Lasix to go forward. You will likely be able to reduce packed here previous dose of 20 mg in the morning. You are also mildly wheezy this morning. Use your albuterol inhaler every 4 hours if needed for wheezing. Remember, if you have any worsening symptoms, worsening shortness of breath, new chest pain, high fever, or any problems, please come back to the ER right away to be rechecked. Prescriptions: New albuterol sulfate 90 mcg/actuation aerosol powdr breath activated 2 inh inhalation Q4-6H PRNQty: 1 0RF furosemide [Lasix] 40 mg tablet 40 mg PO DAILY Qty: 7 2RF No Action calcium carbonate-vitamin D3 500 mg-5 mcg (200 unit) tablet 1 tab PO BID loratadine 10 mg tablet See Rx Instructions PO QDAY Rx Instructions: 10 mg (PRN) PO every day; zinc sulfate 66 mg tablet 66 mg PO QDAY albuterol sulfate 90 mcg/actuation HFA aerosol inhaler inhalation prednisone 20 mg tablet 20 mg PO BID sotalol 120 mg tablet 80 mg PO BID potassium chloride 20 mEq packet 20 meq PO DAILY Qty: 7 0RF furosemide [Lasix] 20 mg tablet 20 mg PO QAM Qty: 30 5RF losartan 50 mg tablet 50 mg PO QDAY Qty: 90 3RF magnesium oxide 400 mg magnesium tablet 400 mg PO BID Qty: 90 2RF warfarin 5 mg tablet 10 mg PO QDAY Qty: 180 0RF Protocol: Dose Management Condition: Saturday Dose/Route: 10 mg Instruction: 2 x 5 mg tablets Condition: Saturday Dose/Route: 10 mg Instruction: 2 x 5 mg tablets Condition: Saturday Dose/Route: 10 mg Instruction: 2 x 5 mg tablets Condition: Saturday Dose/Route: 10 mg Instruction: 2 x 5 mg tablets Condition: Dose/Route: 10 mg Instruction: 2 x 5 mg tablets Condition: Saturday Dose/Route: 10 mg Instruction: 2 x 5 mg tablets Condition: Saturday Dose/Route: 10 mg Instruction: 2 x 5 mg tablets Protocol Text: Adjustment Start Date: Saturday01/06/24 INR Value: 2.1 INR Date: 01/06/24 Recheck Date: 03/06/24 Follow Up/Referrals: Filemon Reagan MD [Primary Care Provider] - Stand Alone Forms: hoccer Info Instructions
[2024-01-13 08:52] LABS: Basophils Absolute Auto 0.03 K/uL (0.00-0.30); Basophils Percent Auto 0.5 % (0.0-3.0); Eosinophils Absolute Auto 0.12 K/uL (0.00-0.50); Eosinophils Percent Auto 1.9 % (0.0-7.0); Hemoglobin* 13.9 gm/dL (12.0-16.0); Immature Granulocytes Abs Auto 0.01 K/uL (0.00-0.30); Immature Granulocytes Pct Auto 0.2 %; Lymphocytes Percent Auto 9.4 % (20-44); Mean Corpuscular HGB Conc 33 gm/dL (32-36); Mean Corpuscular Hemoglobin 33 pg (26-34); Mean Corpuscular Volume 100 fL (80-100); Monocytes Percent Auto 7.9 % (0.0-11.0); Neutrophils Percent Auto 80.1 % (42.0-72.0); Platelet Count* 183 K/uL (140-440); RDW Coefficient of Variation % 13.7 % (11.5-15.5); Red Blood Count 4.21 m/uL (4.00-5.20); White Blood Count* 6.36 K/uL (4.50-11.00)
[2024-01-13] MEDS: ALBUTEROL SULFATE 2.5 MG/3 ML VIAL.NEB NEB (08:55)
[2024-01-13 09:02] LABS: Slide Review Reflex No
[2024-01-13 09:16] LABS: Chloride* 93 mmol/L (96-114); Potassium* 4.3 mmol/L (3.6-5.1); Sodium* 129 mmol/L (135-149)
[2024-01-13 09:19] LABS: Creatinine* 0.8 mg/dL (0.5-1.5); Estimated Glomerular Filt Rate 72 ml/min
[2024-01-13 09:20] LABS: Anion Gap 6 mEq/L (7-15); Blood Urea Nitrogen* 14 mg/dL (7-30); Calcium* 8.8 mg/dL (8.4-10.6); Carbon Dioxide* 30 mmol/L (20-32); Glucose* 116 mg/dL (60-115)
[2024-01-13 09:21] LABS: INR 2.38 (0.91-1.10); Prothrombin Time 27.7 Seconds
[2024-01-13 09:22] LABS: PCR FLU A Negative PCR FLU A (Negative); PCR FLU B Negative PCR FLU B (Negative); SARS PCR* Negative SARS-CoV-2 (Negative)
[2024-01-13 09:33] LABS: NT Pro B Type NatriureticPept* 3410 pg/mL; Troponin I* < 0.01 ng/mL (0.01-0.04)
[2024-01-13] MEDS: FUROSEMIDE 10 MG/ML inj 40 MG IVP (10:59)
== END 2024-01-13 13:00 | disposition home or self-care (01) ==
PROVIDERS: Emergency Provider Emergency Medicine; PCP Internal Medicine
DX: I50.9 Heart failure, unspecified (principal); J45.909 Unspecified asthma, uncomplicated
CPT/HCPCS: 36415; 71046; 80048; 83880; 84484; 85025; 85610; 87631; 93005; 94640; 96374; 99283; 99284; J1940

== ENCOUNTER 2024-01-15 09:51 | Outpatient (CLI) | payer MEDICARE, BC, SELFPAY ==
--- OUTSIDE RECORDS SUMMARY | 2024-01-15 09:53 | XMS_ITS | Clinical Summary ---
Author Organization [email or web address] [facility] Address [place], [place] [address] Care Team Providers Care Case Worker Name Role Phone Filemon Reagan MD Primary [...] Comments Blood Pressure 117/62 03/06/2022 12:42 PM [employer] Pulse 78 03/06/2022 12:42 PM [employer] Temperature 36.5 ??C (97.7 ??F) 02/15/2020 10:[address] Respiratory Rate 16 12/07/2018 7:58 AM CDT Oxygen Saturation 97% 03/06/2022 12:42 PM [employer] Inhaled Oxygen Concentration - - Weight 73.5 kg (162 lb) 03/06/2022 12:42 PM [employer] Height 177.8 cm (5' 10) 03/06/2022 12:42 PM [employer] Body Mass Index 23.24 03/06/2022 12:42 PM [employer] Plan of Treatment Upcoming Encounters Date Type Department Care Team (Late st Contact Info) Description 04/07/2024 10:00 AM [employer] Cardiac Device Check [facility] [place] [facility] [address] [place] [address] Health Maintenance Due Date Last [...] Documents on File Type Date Recorded Patient Drive Worker Expl anation Healthcare Directive 12/27/2016 3:20 [...] 1:18 PM 11/01/2016 2:37 PM Care Teams Case Worker Relationship Specialty Start Date End Date Filemon Reagan MD [address] [place] [id number] PCP - General Internal Medicine 05/02/17
== END 2024-01-15 09:52 | disposition home or self-care (01) ==
LOC: NFLDREF 09:51
PROVIDERS: PCP Internal Medicine; Visit Provider Internal Medicine
DX: I50.9 Heart failure, unspecified (principal); I10 Essential (primary) hypertension
CPT/HCPCS: 80048

== ENCOUNTER 2024-02-11 10:12 | Outpatient (CLI) | payer MEDICARE, BC, SELFPAY ==
--- OUTSIDE RECORDS SUMMARY | 2024-02-11 10:16 | XMS_ITS | Clinical Summary ---
Author Organization [employer] [facility] Address [place], [place] [address] Care Team Providers Care Nurse Recruiter Name Role Phone Filemon Reagan MD Primary [...] Comments Blood Pressure 117/62 03/06/2022 12:42 PM OPTICAL ADVISOR Pulse 78 03/06/2022 12:42 PM OPTICAL ADVISOR Temperature 36.5 C (97.7 F) 02/15/2020 10:36 AM OPTICAL ADVISOR Respiratory Rate 16 12/07/2018 7:58 AM CDT Oxygen Saturation 97% 03/06/2022 12:42 PM OPTICAL ADVISOR Inhaled Oxygen Concentration - - Weight 73.5 kg (162 lb) 03/06/2022 12:42 PM OPTICAL ADVISOR Height 177.8 cm (5' 10) 03/06/2022 12:42 PM OPTICAL ADVISOR Body Mass Index 23.24 03/06/2022 12:42 PM OPTICAL ADVISOR Plan of Treatment Upcoming Encounters Date Type Department Care Team (Late st Contact Info) Description 04/07/2024 10:00 AM OPTICAL ADVISOR Cardiac Device Check [facility] [place] [facility] [address] [place] [id number] Health Maintenance Due Date Last Done Comments [...] Documents on File Type Date Recorded Patient Help Desk Support Specialist Expl anation Healthcare Directive 12/27/2016 3:20 PM [...] 1:18 PM 11/01/2016 2:37 PM Care Teams Nurse Recruiter Relationship Specialty Start Date End Date Filemon Reagan MD [address] [place] [address] PCP - General Internal Medicine 05/02/17
== END 2024-02-11 10:13 | disposition home or self-care (01) ==
LOC: NFLDREF 10:14
PROVIDERS: PCP Internal Medicine; Visit Provider Internal Medicine
DX: I50.9 Heart failure, unspecified (principal); I10 Essential (primary) hypertension
CPT/HCPCS: 80048

== ENCOUNTER 2024-05-01 09:54 | Outpatient (CLI) | payer MEDICARE, BC, SELFPAY | END 2024-05-01 09:55 | disposition home or self-care (01) | LOC: WOUND 09:57 | PROVIDERS: PCP Internal Medicine; Visit Provider Physician Assistant Surgical | DX: T81.31XA Disruption of external operation (surgical) wound, not elsewhere classified, initial encounter (principal); Z79.01 Long term (current) use of anticoagulants; I48.20 Chronic atrial fibrillation, unspecified | CPT/HCPCS: 11042; G0463 ==

== ENCOUNTER 2024-05-07 08:02 | Outpatient (CLI) | payer MEDICARE, BC, SELFPAY | END 2024-05-07 08:03 | disposition home or self-care (01) | LOC: WOUND 08:03 | PROVIDERS: PCP Internal Medicine; Visit Provider Nurse Practitioner Family | DX: T81.31XA Disruption of external operation (surgical) wound, not elsewhere classified, initial encounter (principal); Z79.01 Long term (current) use of anticoagulants; I48.20 Chronic atrial fibrillation, unspecified | CPT/HCPCS: 11042 ==

== ENCOUNTER 2024-05-14 08:39 | Outpatient (CLI) | payer MEDICARE, BC, SELFPAY | END 2024-05-14 08:40 | disposition home or self-care (01) | LOC: WOUND 08:39 | PROVIDERS: PCP Internal Medicine; Visit Provider Nurse Practitioner Family | DX: T81.31XA Disruption of external operation (surgical) wound, not elsewhere classified, initial encounter (principal) | CPT/HCPCS: 11042 ==

== ENCOUNTER 2024-05-21 08:34 | Outpatient (CLI) | payer MEDICARE, BC, SELFPAY | END 2024-05-21 08:35 | disposition home or self-care (01) | LOC: WOUND 08:34 | PROVIDERS: PCP Internal Medicine; Visit Provider Nurse Practitioner Family | DX: T81.31XA Disruption of external operation (surgical) wound, not elsewhere classified, initial encounter (principal); Z79.01 Long term (current) use of anticoagulants; I48.20 Chronic atrial fibrillation, unspecified | CPT/HCPCS: 11042 ==

== ENCOUNTER 2024-05-28 08:11 | Outpatient (CLI) | payer MEDICARE, BC, SELFPAY | END 2024-05-28 08:12 | disposition home or self-care (01) | PROVIDERS: PCP Internal Medicine; Visit Provider Nurse Practitioner Family | DX: T81.31XA Disruption of external operation (surgical) wound, not elsewhere classified, initial encounter (principal) | CPT/HCPCS: 11042 ==

== ENCOUNTER 2024-06-04 08:40 | Outpatient (CLI) | payer MEDICARE, BC, SELFPAY | END 2024-06-04 08:41 | disposition home or self-care (01) | LOC: WOUND 08:40 | PROVIDERS: PCP Internal Medicine; Visit Provider Nurse Practitioner Family | DX: T81.31XA Disruption of external operation (surgical) wound, not elsewhere classified, initial encounter (principal); I48.20 Chronic atrial fibrillation, unspecified; Z79.01 Long term (current) use of anticoagulants | CPT/HCPCS: 11042 ==

== ENCOUNTER 2024-06-12 08:43 | Outpatient (CLI) | payer MEDICARE, BC, SELFPAY | END 2024-06-12 08:44 | disposition home or self-care (01) | LOC: WOUND 08:44 | PROVIDERS: PCP Internal Medicine; Visit Provider Nurse Practitioner Family | DX: T81.31XA Disruption of external operation (surgical) wound, not elsewhere classified, initial encounter (principal); Z79.01 Long term (current) use of anticoagulants; I48.20 Chronic atrial fibrillation, unspecified | CPT/HCPCS: 11042 ==

== ENCOUNTER 2024-06-18 08:37 | Outpatient (CLI) | payer MEDICARE, BC, SELFPAY | END 2024-06-18 08:38 | disposition home or self-care (01) | LOC: WOUND 08:38 | PROVIDERS: PCP Internal Medicine; Visit Provider Physician Assistant Surgical | DX: T81.31XA Disruption of external operation (surgical) wound, not elsewhere classified, initial encounter (principal); I48.20 Chronic atrial fibrillation, unspecified; Z79.01 Long term (current) use of anticoagulants | CPT/HCPCS: 11042 ==

== ENCOUNTER 2024-06-25 08:39 | Outpatient (CLI) | payer MEDICARE, BC, SELFPAY | END 2024-06-25 08:40 | disposition home or self-care (01) | LOC: WOUND 08:39 | PROVIDERS: PCP Internal Medicine; Visit Provider Nurse Practitioner Family | DX: T81.31XD Disruption of external operation (surgical) wound, not elsewhere classified, subsequent encounter (principal); Z79.01 Long term (current) use of anticoagulants; I48.20 Chronic atrial fibrillation, unspecified | CPT/HCPCS: G0463 ==

== ENCOUNTER 2024-12-17 11:33 | Outpatient (CLI) | payer MEDICARE, BC, SELFPAY | END 2024-12-17 11:34 | disposition home or self-care (01) | LOC: NFLDREF 12-21 04:43 | PROVIDERS: PCP Internal Medicine; Referring Provider Internal Medicine; Visit Provider Internal Medicine | DX: I48.91 Unspecified atrial fibrillation (principal); I34.0 Nonrheumatic mitral (valve) insufficiency | CPT/HCPCS: 85610 ==

== ENCOUNTER 2025-01-07 10:51 | Outpatient (CLI) | payer MEDICARE, BC, SELFPAY | END 2025-01-07 10:52 | disposition home or self-care (01) | LOC: NFLDREF 01-22 02:05 | PROVIDERS: PCP Internal Medicine; Referring Provider Internal Medicine; Visit Provider Internal Medicine | DX: I48.91 Unspecified atrial fibrillation (principal); Z79.01 Long term (current) use of anticoagulants | CPT/HCPCS: 85610 ==

== ENCOUNTER 2025-02-09 07:53 | Outpatient (CLI) | payer MEDICARE, BC, SELFPAY | END 2025-02-09 07:54 | disposition home or self-care (01) | LOC: NFLDREF 02-13 16:24 | PROVIDERS: PCP Internal Medicine; Referring Provider Internal Medicine; Visit Provider Internal Medicine | DX: I50.9 Heart failure, unspecified (principal) | CPT/HCPCS: 80053; 80061 ==